=== PATIENT | female | born 1945 | race Caucasian/White ===

== ENCOUNTER 2017-09-20 11:34 | Inpatient (IN) | payer MEDICARE, OTHER ==
[2017-09-20] MEDS ORDERED: FLU Vacc TS 2017-18 (65yr UP)/PF 180 MCG/0.5 ML Syringe IM ONE (12:30)
[2017-09-20] MEDS ORDERED: Azithromycin 250 MG Tab PO STA (12:52)
[2017-09-20] MEDS ORDERED: cefTRIAXone 1 GM Vial IVPUSH STA (12:52)
[2017-09-20] MEDS ORDERED: Lactated Ringers 1,000 ML IV SCH (13:00)
--- NOTE | 2017-09-20 13:35 | PCM.HP ---
H&P History of Present Illness - General Date of Service: 09/20/17 Admit Problem/Dx: Admission Diagnosis/Problem Admission Diagnosis/Problem Pneumonia Source of Information: Patient, Family History Limitations: Reports: No Limitations - History of Present Illness Initial Comments - Free Text/Narative: Ms. Nick is a 72 yo female who presented to clinic today for evaluation of a cough for the past 12 days. Cough is productive of greenish sputum and has been consistently worsening over time. Developed some left chest pain 2 days ago that is present all the time but worse with coughing or deep breaths. Associated symptoms have included subjective fever (temps checked at home actually low in the 95 range), chills, myalgias, shortness of breath, generalized weakness, and nausea with emesis consisting mainly of mucus. She lives independently and her daughter was becoming increasingly concerned about her functioning at home. She has not been eating or drinking as well and has noticed that her urine output has slowed. She has not had any URI symptoms or sore throat. She was seen last week for similar symptoms at which time a chest x -ray was negative. Has tried OTC cough/cold medicines without much relief in symptoms. Has a history of pneumonia many years ago and states these symptoms are similar. Back Pain Score (Numeric/FACES): 3 - Related Data Allergies/Adverse Reactions: Allergies Allergy/AdvReac Type Severity Reaction Status Date / Time Sulfa (Sulfonamide Allergy Hives Verified 09/20/17 12:10 Antibiotics) tramadol Allergy Dizziness Verified 09/20/17 12:10 Home Medications: Home Meds Acetaminophen [Tylenol Arthritis] 650 mg PO QID PRN 09/20/17 [History] Aspirin 81 mg PO DAILY 09/20/17 [History] Cholecalciferol (Vitamin D3) [Vitamin D3] 2,000 unit PO DAILY 09/20/17 [History] Citalopram Hydrobromide [Celexa] 40 mg PO DAILY 09/20/17 [History] Dextromethorphan HBr/Chlor-Mal [Coricidin Hbp Cough & Cold] 1 cap PO DAILY 09/20 [History] Diltiazem [Cardizem CD] 240 mg PO BID 09/20/17 [History] Docusate Sodium [Colace] 100 mg PO BID 09/20/17 [History] Lactulose 15 ml PO BID 09/20/17 [History] Lisinopril 10 mg PO DAILY 09/20/17 [History] Multivitamin [Multivitamins] 1 tab PO DAILY 09/20/17 [History] Omeprazole 20 mg PO DAILY 09/20/17 [History] Valerian Root [Valerian] 450 mg PO DAILY 09/20/17 [History] atorvaSTATin [Lipitor] 40 mg PO DAILY 09/20/17 [History] Past Medical History HEENT History: Reports: Other (See Below) Other HEENT History: rhinitis. 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 tolerance Hematologic History: Reports: None Immunologic History: Reports: None Oncologic (Cancer) History: Reports: None Dermatologic History: Reports: None - Infectious Disease History Infectious Disease History: Reports: None - Past Surgical History GI Surgical History: Reports: Appendectomy, Cholecystectomy, Colonoscopy Female Surgical History: Reports: Hysterectomy Endocrine Surgical History: Reports: Thyroidectomy (partial) Musculoskeletal Surgical History: Reports: Hip Replacement, Knee Replacement Social & Family History - Family History Respiratory: Reports: COPD Endocrine/Metabolic: Reports: Diabetes, type II Oncologic: Reports: Breast - Tobacco Use Smoking Status *Q: Former Smoker - Caffeine Use Caffeine Use: Reports: None - Alcohol Use Alcohol Use History: No Alcohol Use in Last Twelve Months: No - Recreational Drug Use Recreational Drug Use: No - Living Situation & Occupation Living situation: Reports: Single, Alone Occupation: Retired H&P Review of Systems - Review of Systems: Review Of Systems: See Below General: Reports: Fever, Chills, Weakness HEENT: Reports: No Symptoms Pulmonary: Reports: Shortness of Breath, Pleuritic Chest Pain, Cough Cardiovascular: Reports: No Symptoms Gastrointestinal: Reports: Anorexia, Nausea, Vomiting. Denies: Abdominal Pain, Diarrhea Genitourinary: Reports: No Symptoms Musculoskeletal: Reports: No Symptoms Skin: Reports: No Symptoms Psychiatric: Reports: No Symptoms Neurological: Reports: No Symptoms Exam - Exam Exam: See Below - Vital Signs Vital Signs: Last Vital Signs Temp 38.0 C 09/20/17 13:31 Pulse 92 09/20/17 13:31 Resp 24 H 09/20/17 13:31 BP 158/78 H 09/20/17 13:31 Pulse Ox 93 L 09/20/17 13:31 Weight: 77.619 kg - Exam General: Alert, Cooperative HEENT: Conjunctiva Clear, Mucosa Moist & [place], Posterior Pharynx Clear, Pupils Equal, Pupils Reactive, TMs Clear Neck: Supple, Trachea Midline. No: Lymphadenopathy, Thyromegaly Lungs: Normal Respiratory Effort, Crackles (right mid and lower lung hyde) Cardiovascular: Regular Rate, Regular Rhythm, Normal S1, Normal S2. No: Systolic Murmur, Diastolic Murmur GI/Abdominal Exam: Normal Bowel Sounds, Soft, Non-Tender, No Organomegaly, No Distention, No Mass Extremities: Normal Inspection, Non-Tender, No Pedal Edema Peripheral Pulses: 2+: Radial (L), Radial (R) Skin: Warm, Dry, Intact Neurological: Other (diminished strength left upper and lower extremities, which is chronic; left facial droop (also chronic) but smile is symmetric; no other deficits) *Q Meaningful Use (ADM) - VTE *Q VTE Criteria *Q: - Stroke *Q Stroke Criteria *Q: - AMI *Q AMI Criteria *Q: - Problem List (1) Community acquired pneumonia SNOMED Code(s): 287979211 ICD Code: J18.9 - PNEUMONIA, UNSPECIFIED ORGANISM Status: Acute Current Visit: Yes Problem Details: - History, exam, and CXR findings are most consistent with CAP. - Clinical history and course are not really consistent with influenza nor with a post-influenza pneumonia. - Therefore, will treat with ceftriaxone and azithromycin per guidelines. - If not improving tomorrow, will reconsider testing for influenza and expanding coverage of antibiotics with addition of vancomycin. - IV fluids for 1 L, the PO's. - Oxygen PRN to keep saturations >90%. - Per CURB-65 score really could be treated outpatient but inpatient admission recommended in light of her meeting sepsis criteria. Qualifiers: Laterality: left Lung location: lower lobe of lung Qualified Code(s): J18.1 - Lobar pneumonia, unspecified organism (2) Sepsis SNOMED Code(s): 98973076 ICD Code: A41.9 - SEPSIS, UNSPECIFIED ORGANISM Status: Acute Current Visit: Yes Problem Details: - Patient meets sepsis criteria with tachycardia, leukocytosis, and fever. - Source likely CAP based on symptoms. She has no UTI, GI, or skin symptoms. - Will treat with ceftriaxone and azithromycin as above. - She did not have an initial lactate in clinic so will not repeat that now. - Blood cultures also not drawn in clinic; will obtain if patient becomes febrile again. - IV fluids today, then can do PO's. Will bolus PRN. Qualifiers: Sepsis type: sepsis due to unspecified organism Qualified Code(s): A41.9 - Sepsis, unspecified organism (3) Generalized weakness SNOMED Code(s): 24401675 ICD Code: R53.1 - WEAKNESS Status: Acute Current Visit: Yes Problem Details: - Secondary to above. - PT consult ordered to assess need for swing bed post acute stay. (4) Hypertension SNOMED Code(s): 39500791 ICD Code: I10 - ESSENTIAL (PRIMARY) HYPERTENSION Status: Chronic Current Visit: Yes Problem Details: - BP elevated on admission but patient has not been taking her medications. - Will add in lisinopril first. - If BP remains elevated, will add back in her diltiazem as well. Qualifiers: Hypertension type: essential hypertension Qualified Code(s): I10 - Essential (primary) hypertension (5) Cerebrovascular disease SNOMED Code(s): 24075370 ICD Code: I67.9 - CEREBROVASCULAR DISEASE, UNSPECIFIED Status: Chronic Current Visit: Yes Problem Details: - No symptoms of new CVA at this time. - Continue home medications. Problem List Initiated/Reviewed/Updated: Yes Orders Last 24hrs: Active Orders 24 hr Category Date Time Status Admission Status [Patient Status] [ADT] Routine ADT 09/20/17 11:35 Active Notify Provider Vital Signs [RC] 02,06,10,14,18,22 Care 09/20/17 12:50 Active Oxygen Therapy [RC] , Care 09/20/17 12:49 Active Up With Assistance [RC] , Care 09/20/17 12:49 Active VTE/DVT Education [RC] .PRN Care 09/20/17 12:49 Active Vital Signs [RC] 02,06,10,14,18,22 Care 09/20/17 12:49 Active Regular Diet [DIET] Diet 09/20/17 Dinner Active Acetaminophen [Tylenol Arthritis Pain] Med 09/20/17 13:26 Ordered 650 mg PO QID PRN Aspirin Med 09/21/17 08:00 Ordered 81 mg PO DAILY Cholecalciferol (Vitamin D3) [Vitamin D3] Med 09/21/17 08:00 Ordered 2,000 unit PO DAILY Enoxaparin [Lovenox] Med 09/21/17 08:00 Ordered 40 mg SUBCUT DAILY Lactated Ringers [Ringers, Lactated] 1,000 ml Med 09/20/17 13:00 Active IV ASDIRECTED Lisinopril [Prinivil] Med 09/20/17 13:30 Ordered 10 mg PO DAILY Omeprazole Med 09/21/17 08:00 Ordered 20 mg PO DAILY atorvaSTATin [Lipitor] Med 09/21/17 08:00 Ordered 40 mg PO DAILY Resuscitation Status Routine Resus Stat 09/20/17 12:49 Ordered Medication Orders Acetaminophen (Tylenol Arthritis Pain) 650 mg PO QID PRN PRN Reason: Pain Aspirin (Aspirin) 81 mg PO DAILY [facility] Atorvastatin Calcium (Lipitor) 40 mg PO DAILY [facility] Enoxaparin Sodium (Lovenox) 40 mg SUBCUT DAILY [facility] Lactated Ringer's (Ringers, Lactated) 1,000 mls @ 125 mls/hr IV ASDIRECTED [facility] Lisinopril (Prinivil) 10 mg PO DAILY [facility] Non-Formulary Medication (Cholecalciferol (Vitamin D3) [Vitamin D3]) 2,000 unit PO DAILY [facility] Omeprazole (Omeprazole) 20 mg PO DAILY [facility] Assessment/Plan Comment:: 72 yo female admitted with sepsis secondary to community acquired pneumonia. See details under problems above. Home medications will be continued except diltiazem which she has not been taking anyway. Ceftriaxone and azithromycin for pneumonia. IV fluids today, then PO's with bolus IV as needed. Oxygen as needed. PT consult. Lovenox for VTE prophylaxis. Patient is admitted under acute status as I anticipate she will need >48 hours of hospitalization - likely to be dismissed in the afternoon on Sunday unless swing bed is recommended. Code status is full.
[2017-09-20] MEDS: Acetaminophen 650 MG Tab.ER PO PRN ×2 (13:45→21:38)
[2017-09-20] MEDS: Lisinopril 10 MG Tab PO SCH (13:45)
[2017-09-20] MEDS ORDERED: Enoxaparin 40 MG/0.4 ML Syringe SUBCUT SCH (18:00)
[2017-09-21] MEDS: Omeprazole 20 MG Cap.CR PO SCH (06:47)
[2017-09-21] MEDS: Acetaminophen 650 MG Tab.ER PO PRN ×3 (06:48→19:37)
--- NOTE | 2017-09-21 07:16 | PCM.PN ---
- General Info Date of Service: 09/21/17 Subjective Update: Patient slept well. Has some improvement in shortness of breath and left chest pain this am. Cough is essentially stable. No fever overnight but did have some sweats. Appetite remains poor but she has had no nausea or vomiting. No diarrhea. - Review of Systems General: Reports: Weakness, Night Sweats HEENT: Reports: No Symptoms Pulmonary: Reports: Shortness of Breath, Cough Cardiovascular: Reports: No Symptoms Gastrointestinal: Reports: No Symptoms Genitourinary: Reports: No Symptoms Musculoskeletal: Reports: No Symptoms Skin: Reports: No Symptoms Neurological: Reports: Pre-Existing Deficit - Patient Data Vitals - Most Recent: Last Vital Signs Temp 36.3 C 09/21/17 05:11 Pulse 72 09/21/17 05:11 Resp 18 09/21/17 05:11 BP 157/70 H 09/21/17 05:11 Pulse Ox 95 09/21/17 05:11 Weight - Most Recent: 77.619 kg I&O - Last 24 Hours: Intake & Output 09/20/17 09/21/17 09/21/17 22:59 06:59 14:59 Intake Total 850 300 Output Total 200 800 Balance 650 -500 Lab Results Last 24 Hours: Laboratory Results - last 24 hr 09/21/17 Range/Units 00:35 Urine Color Yellow (YELLOW) Urine Appearance Clear (CLEAR) Urine pH 7.0 (5.0-8.0) Ur Specific Reserve 1.010 Urine Protein Negative (NEGATIVE) mg/dL Urine Glucose (UA) Negative (NEGATIVE) mg/dL Urine Ketones Negative (NEGATIVE) mg/dL Urine Occult Blood Trace-lysed H (NEGATIVE) Urine Nitrite Negative (NEGATIVE) Urine Bilirubin Negative (NEGATIVE) Urine Urobilinogen 0.2 (0.2) EU/dL Ur Leukocyte Esterase Small H (NEGATIVE) Urine RBC 0-5 (NOT SEEN) /HPF Urine WBC 0-5 (NOT SEEN) /HPF Ur Squamous Epith Cells Rare (NEGATIVE) /HPF Urine Bacteria Few H (NEGATIVE) /HPF Urine Mucus Not seen (NEGATIVE) /LPF Med Orders - Current: Current Medications Acetaminophen (Tylenol Arthritis Pain) 650 mg PO QID PRN PRN Reason: Pain Last Admin: 09/21/17 06:48 Dose: 650 mg Aspirin (Aspirin) 81 mg PO DAILY [facility] Atorvastatin Calcium (Lipitor) 40 mg PO DAILY [facility] Cholecalciferol (Vitamin D3) 2,000 units PO DAILY [facility] Enoxaparin Sodium (Lovenox) 40 mg SUBCUT DAILY [facility] Lisinopril (Prinivil) 10 mg PO DAILY [facility] Last Admin: 09/20/17 13:45 Dose: 10 mg Omeprazole (Omeprazole) 20 mg PO ACBREAKFAST [facility] Last Admin: 09/21/17 06:47 Dose: 20 mg Discontinued Medications Azithromycin (Zithromax) 500 mg PO ONETIME STA Stop: 09/20/17 12:53 Last Admin: 09/20/17 13:33 Dose: 500 mg Ceftriaxone Sodium (Rocephin) 1 gm IVPUSH ONETIME STA Stop: 09/20/17 12:53 Last Admin: 09/20/17 13:33 Dose: 1 gm Lactated Ringer's (Ringers, Lactated) 1,000 mls @ 125 mls/hr IV ASDIRECTED [facility] Stop: 09/20/17 21:01 Last Admin: 09/20/17 13:45 Dose: 125 mls/hr Influenza Virus Vaccine (Pharmacy To Dose - Influenza Vaccine) 1 each IM ONETIME ONE Stop: 09/20/17 12:03 Influenza Virus Vaccine (Fluzone High-Dose 2016-) 180 mcg IM .ONCE ONE Stop: 09/20/17 12:31 - Exam General: Alert, Oriented, Cooperative, No Acute Distress HEENT: Mucous Membr. Moist/[place] Neck: Supple, Trachea Midline, No Thyromegaly. No: Lymphadenopathy Lungs: Normal Respiratory Effort, Crackles (LLL), Wheezing (throughout) Cardiovascular: Regular Rate, Regular Rhythm, No Murmurs GI/Abdominal Exam: Normal Bowel Sounds, Soft, Non-Tender, No Organomegaly, No Distention, No Mass Extremities: Non-Tender, No Pedal Edema, Normal Capillary Refill Peripheral Pulses: 2+: Radial (L), Radial (R), Dorsalis Pedis (L), Dorsalis Pedis (R) Skin: Warm, Dry, Intact - Problem List & Annotations (1) Community acquired pneumonia SNOMED Code(s): 551126579 Code(s): J18.9 - PNEUMONIA, UNSPECIFIED ORGANISM Status: Acute Current Visit: Yes Qualifiers: Laterality: left Lung location: lower lobe of lung Qualified Code(s): J18.1 - Lobar pneumonia, unspecified organism Annotation/Comment:: - History, exam, and CXR findings are most consistent with CAP. - Clinical history and course are not really consistent with influenza nor with a post-influenza pneumonia. - Continue ceftriaxone and azithromycin. - Oxygen PRN to keep saturations >90%. Will work on weaning this today. - Per CURB-65 score really could be treated outpatient but inpatient admission recommended in light of her meeting sepsis criteria. (2) Sepsis SNOMED Code(s): 85203053 Code(s): A41.9 - SEPSIS, UNSPECIFIED ORGANISM Status: Resolved Current Visit: Yes Qualifiers: Sepsis type: sepsis due to unspecified organism Qualified Code(s): A41.9 - Sepsis, unspecified organism Annotation/Comment:: - Patient met sepsis criteria on admission with tachycardia, leukocytosis, and fever. - She is no longer meeting sepsis criteria at this time. - Source likely CAP based on symptoms. She has no UTI, GI, or skin symptoms. - Will treat with ceftriaxone and azithromycin as above. - Unfortunately, lactate and blood cultures not done with admission from clinic. Blood cultures will be obtained if patient becomes febrile again. No indication to obtain lactate at this point. (3) Generalized weakness SNOMED Code(s): 68908246 Code(s): R53.1 - WEAKNESS Status: Acute Current Visit: Yes Annotation/ Comment:: - Secondary to above. - PT consult ordered to assess need for swing bed post acute stay. (4) Hypertension SNOMED Code(s): 81067011 Code(s): I10 - ESSENTIAL (PRIMARY) HYPERTENSION Status: Chronic Current Visit: Yes Qualifiers: Hypertension type: essential hypertension Qualified Code(s): I10 - Essential (primary) hypertension Annotation/Comment:: - BP elevated on admission but patient has not been taking her medications. Much better today after lisinopril resumed. - Will continue lisinopril only for now and consider adding the diltiazem back in if BP's increase. (5) Cerebrovascular disease SNOMED Code(s): 11067430 Code(s): I67.9 - CEREBROVASCULAR DISEASE, UNSPECIFIED Status: Chronic Current Visit: Yes Annotation/Comment:: - No symptoms of new CVA at this time. - Continue home medications. - Problem List Review Problem List Initiated/Reviewed/Updated: Yes - My Orders Last 24 Hours: My Active Orders 09/20/17 11:35 Admission Status [Patient Status] [ADT] Routine 09/20/17 12:49 Oxygen Therapy [RC] 08,20 Up With Assistance [RC] 08,20 VTE/DVT Education [RC] .PRN Vital Signs [RC] 02,06,10,14,18,22 Resuscitation Status Routine 09/20/17 12:50 Notify Provider Vital Signs [RC] 02,06,10,14,18,22 09/20/17 13:26 Acetaminophen [Tylenol Arthritis Pain] 650 mg PO QID PRN 09/20/17 13:30 Lisinopril [Prinivil] 10 mg PO DAILY 09/20/17 16:13 Consult to Physical Therapy [PT Evaluation and Treatment] [CONS] Routine 09/20/17 Dinner Regular Diet [DIET] 09/21/17 05:11 BASIC METABOLIC PANEL,BMP [CHEM] Routine CBC WITH AUTO DIFF [HEME] Routine 09/21/17 07:00 Omeprazole 20 mg PO ACBREAKFAST 09/21/17 08:00 Aspirin 81 mg PO DAILY Cholecalciferol (Vitamin D3) [Vitamin D3] 2,000 units PO DAILY Enoxaparin [Lovenox] 40 mg SUBCUT DAILY atorvaSTATin [Lipitor] 40 mg PO DAILY - Assessment Assessment:: 72 yo on hospital day #2 with sepsis secondary to community acquired pneumonia. Some improved this morning but still quite weak. Sepsis resolved. - Plan Plan:: See details under problems above. Home medications will be continued except diltiazem which she has not been taking anyway. Ceftriaxone and azithromycin for pneumonia. Oxygen will be weaned as able. PT consult. Lovenox for VTE prophylaxis. Patient will remain under acute status at this time - anticipate dismissal in the next 24-48 hours unless swing bed is recommended. Code status is full.
[2017-09-21 07:41] LABS: CHLORIDE,CL 97 mmol/L (98-107); SODIUM,NA 137 mmol/L (136-145)
[2017-09-21] MEDS: Enoxaparin 40 MG/0.4 ML Syringe SUBCUT SCH (09:11)
[2017-09-21] MEDS: atorvaSTATin 40 MG Tab PO SCH (09:11)
[2017-09-21] MEDS: Lisinopril 10 MG Tab PO SCH (09:11)
[2017-09-21] MEDS: Cholecalciferol (Vitamin D3) 1,000 Unit Tab PO SCH (09:11)
[2017-09-21] MEDS: Aspirin 81 MG Tab.Chew PO SCH (09:11)
[2017-09-21] MEDS ORDERED: Sodium Chloride 0.9% 10 ML Syringe FLUSH PRN (09:17)
[2017-09-21] MEDS: cefTRIAXone 1 GM Vial IVPUSH SCH (12:03)
[2017-09-21] MEDS: Azithromycin 250 MG Tab PO SCH (12:03)
[2017-09-21] MEDS ORDERED: Albuterol 0.083% 2.5 MG/3 ML Neb Soln NEB PRN (12:10)
[2017-09-22] MEDS: Acetaminophen 650 MG Tab.ER PO PRN ×3 (00:24→20:35)
[2017-09-22] MEDS: Omeprazole 20 MG Cap.CR PO SCH ×2 (04:32→06:01)
[2017-09-22] MEDS: Cholecalciferol (Vitamin D3) 1,000 Unit Tab PO SCH (08:01)
[2017-09-22] MEDS: Enoxaparin 40 MG/0.4 ML Syringe SUBCUT SCH (08:01)
[2017-09-22] MEDS: Aspirin 81 MG Tab.Chew PO SCH (08:01)
[2017-09-22] MEDS: atorvaSTATin 40 MG Tab PO SCH (08:01)
[2017-09-22] MEDS: Lisinopril 10 MG Tab PO SCH (08:01)
[2017-09-22 09:30] LABS: CHLORIDE,CL 94 mmol/L (98-107); SODIUM,NA 133 mmol/L (136-145)
[2017-09-22] MEDS: Diltiazem 120 MG Cap.CD PO SCH (11:17)
[2017-09-22] MEDS: cefTRIAXone 1 GM Vial IVPUSH SCH (11:18)
[2017-09-22] MEDS: Potassium Chloride 10 MEQ Tab.ER PO SCH ×2 (11:18→20:35)
[2017-09-22] MEDS: Azithromycin 250 MG Tab PO SCH (11:18)
[2017-09-22] MEDS: predniSONE 20 MG Tab PO SCH (11:25)
[2017-09-22] MEDS: HYDROmorphone 2 MG Tab PO PRN ×2 (11:52→20:36)
--- NOTE | 2017-09-22 11:54 | PN ---
Progress Note for ANA RIVAS Date: 09/22/2017 Room #: VM.211 SUBJECTIVE: A 72-year-old hospital day #3 with community-acquired pneumonia. She has been sick with a cough for about 2 weeks. Her initial chest x-rays were negative, but she returned to the clinic and was having more left-sided chest pain. This continues, it comes and goes, not necessarily worse with coughing or breathing. She did cough up some sputum this morning with a tinge of blood in it. Otherwise, she continues to cough. She is requiring oxygen. She is not normally on oxygen at home, but her saturations have remained above 90%. She denies that she is short of breath, but does feel weak. She has had a previous stroke, but does live independently. She has had previous history of smoking and tells me she has had a little asthma. She got a nebulizer and it seemed to help. She has been wheezing. OBJECTIVE: Vital Signs: She has been afebrile now since admission when temperature was 100.4. Her temperature currently is 99.1, pulse is 90, blood pressure 162/89, respiratory rate is 20, and O2 of 93% on 3 L. General: She is in no acute distress. Heart: Regular rate and rhythm. Lungs: Sounds are clear with no crackles appreciated, but she has both inspiratory and expiratory wheezing throughout. Abdomen: Positive bowel sounds. Soft and nontender. Extremities: Warm and dry. No edema. Her left arm has some hemiplegia from previous stroke. LABORATORY DATA: Lab work reviewed. It did show white count up to 10.7, hemoglobin 11.5, and platelets 337. Sodium 133, potassium 3.4, chloride 94, bicarbonate 30, BUN 9, creatinine 0.8, glucose 174. ASSESSMENT AND PLAN: 1. Community-acquired pneumonia, left lower lobe, on IV Rocephin and Zithromax, day #3, afebrile. White count did go up slightly, however, clinically she does seem to be improving. 2. Sepsis secondary to community-acquired pneumonia. 3. Generalized weakness due to pneumonia. 4. Essential hypertension, under poor control. She does tell me she was taking the diltiazem at home. I am going to start it at 120 mg dose and monitor. She is also on lisinopril. 5. History of stroke, due to recent illness she has had some worsening of her left-sided weakness and PT did recommended swing bed. She is agreeable. 6. Possible reactive airway disease. Given her wheezing today, I am going to order some oral prednisone. This will likely make the white count go up, so we will skip labs tomorrow, especially since she was a hard draw. 7. Hypokalemia. We will replace orally. We will encourage p.o. intake. She has been eating only about 50% of her meals. PLAN: The patient will continue acute cares. We will continue IV Rocephin and oral Zithromax. No sputum culture results are available. No blood culture was done through the clinic. We will continue to wean oxygen, get her up into the chair, get her on some incentive spirometry, scheduled nebulizers, and some prednisone. Re-evaluate tomorrow for possible transition over to swing bed. We will probably repeat lab work again in 2 to 3 days for the potassium and blood counts. Otherwise, she is on Lovenox for DVT prophylaxis. FLACA: 09/22/2017 11:13:02 MODL: 09/22/2017 11:48:10 /[id number]
[2017-09-22] MEDS: Albuterol 0.083% 2.5 MG/3 ML Neb Soln NEB SCH ×2 (13:07→20:35)
[2017-09-23] MEDS: Omeprazole 20 MG Cap.CR PO SCH ×2 (05:32→06:04)
[2017-09-23] MEDS: Albuterol 0.083% 2.5 MG/3 ML Neb Soln NEB SCH ×4 (06:06→19:40)
[2017-09-23] MEDS: HYDROmorphone 2 MG Tab PO PRN ×2 (08:00→21:31)
[2017-09-23] MEDS: Enoxaparin 40 MG/0.4 ML Syringe SUBCUT SCH (08:00)
[2017-09-23] MEDS: Aspirin 81 MG Tab.Chew PO SCH (08:01)
[2017-09-23] MEDS: atorvaSTATin 40 MG Tab PO SCH (08:01)
[2017-09-23] MEDS: Lisinopril 10 MG Tab PO SCH (08:01)
[2017-09-23] MEDS: Diltiazem 120 MG Cap.CD PO SCH (08:01)
[2017-09-23] MEDS: predniSONE 20 MG Tab PO SCH (08:01)
[2017-09-23] MEDS: Potassium Chloride 10 MEQ Tab.ER PO SCH ×2 (08:01→19:40)
[2017-09-23] MEDS: Cholecalciferol (Vitamin D3) 1,000 Unit Tab PO SCH (08:01)
[2017-09-23] MEDS ORDERED: methylPREDNISolone Sodium Succinate 40 MG/1 ML SDV IVPUSH ONE (09:33)
[2017-09-23] MEDS: cefTRIAXone 1 GM Vial IVPUSH SCH (11:28)
[2017-09-23] MEDS: Azithromycin 250 MG Tab PO SCH (11:28)
--- NOTE | 2017-09-23 11:57 | PN ---
Progress Note for ANA RIVAS Date: 09/23/2017 Room #: VM.211 SUBJECTIVE: This is hospital day #4 for a 72-year-old admitted with a left lower lobe pneumonia from the clinic. She continues to have pleuritic left chest wall pain and even required some doses of oral Dilaudid including one this morning. She is still coughing, but has not coughed up blood since yesterday. She denies that she is feeling short of breath and has been weaned down to 2 L of oxygen. She otherwise did spike 100.7 temp at 10 p.m. last night. She is still wheezing. She feels the nebulizer has helped. She was given some oral prednisone yesterday. OBJECTIVE: Vital Signs: Her temperature is 97.3, pulse 65, blood pressure 138/68, respiratory rate 18, and O2 94% on 2 L. General: She is in no acute distress. Heart: Regular rate and rhythm. Lungs: Sounds are decreased over the left base with crackles. She has inspiratory and expiratory wheezing throughout. Abdomen: Nondistended, nontender. Positive bowel sounds. Extremities: Warm and dry. No edema. Mental status: She is alert and orientated x3. LAB WORK: Showed blood sugar did go up to 193 yesterday afternoon, was 119 this morning. ASSESSMENT AND PLAN: 1. Sepsis secondary to a left lower lobe pneumonia. She still had a low-grade temp last evening. We will go ahead and repeat a chest x-ray today. 2. Left lower lobe pneumonia. She did have some gram-positive cocci on Gram stain. Culture pending although, she has been on antibiotics. 3. Left lower lobe pneumonia, community acquired. We will repeat her x-ray today. 4. Reactive airway disease, possibly underlying chronic obstructive pulmonary disease or asthma. We will place her on IV Solu-Medrol instead of oral prednisone. We will increase her nebs to q.i.d. and also have p.r.n.. 5. History of stroke. She has been working with PT prior to the weekend and she will likely transfer over to swing bed for further cares due to deconditioning from her current illness. 6. Essential hypertension, under better control after restarting diltiazem. 7. Hyperglycemia with prediabetes, likely from steroids. We will continue to monitor Accu-Chek's. 8. Hypokalemia. We will repeat lab work tomorrow. PLAN: At this point, the patient will continue acute cares. We will continue IV Rocephin and oral Zithromax due to spiking fever last night. I will repeat her x-ray and adjust antibiotics as needed and otherwise we will continue to wean her oxygen. We will give her some IV Solu-Medrol and continue nebulizers. We will revaluate tomorrow for possible discharge over to swing bed. For DVT prophylaxis, she is on Lovenox. MKA: 09/23/2017 09:37:44 MODL: 09/23/2017 11:48:56 /[id number]
[2017-09-23] MEDS: Acetaminophen 650 MG Tab.ER PO PRN (13:24)
[2017-09-24] MEDS: Omeprazole 20 MG Cap.CR PO SCH (06:12)
[2017-09-24] MEDS: Albuterol 0.083% 2.5 MG/3 ML Neb Soln NEB SCH (07:17)
[2017-09-24] MEDS: Aspirin 81 MG Tab.Chew PO SCH (07:41)
[2017-09-24] MEDS: Enoxaparin 40 MG/0.4 ML Syringe SUBCUT SCH (07:42)
[2017-09-24] MEDS: Diltiazem 120 MG Cap.CD PO SCH (07:42)
[2017-09-24] MEDS: Cholecalciferol (Vitamin D3) 1,000 Unit Tab PO SCH (07:42)
[2017-09-24] MEDS: Lisinopril 10 MG Tab PO SCH (07:42)
[2017-09-24] MEDS: atorvaSTATin 40 MG Tab PO SCH (07:42)
[2017-09-24] MEDS: Potassium Chloride 10 MEQ Tab.ER PO SCH (07:42)
[2017-09-24] MEDS: HYDROmorphone 2 MG Tab PO PRN (07:46)
[2017-09-24 08:50] LABS: CHLORIDE,CL 95 mmol/L (98-107); SODIUM,NA 134 mmol/L (136-145)
[2017-09-24] MEDS ORDERED: Magnesium Oxide 400 MG Tab PO SCH (09:30)
[2017-09-24] MEDS ORDERED: predniSONE 20 MG Tab PO SCH (09:45)
[2017-09-24] MEDS ORDERED: Cefuroxime 250 MG Tab PO SCH (09:45)
--- NOTE | 2017-09-25 03:54 | DISCH ---
PRIMARY DISCHARGE DIAGNOSES: 1. Sepsis, secondary to left lower lobe pneumonia. 2. Community-acquired pneumonia, left lower lobe. Sputum cultures grew normal respiratory [place]. 3. Generalized weakness with history of stroke and left-sided weakness due to underlying pneumonia, requiring physical therapy prior to returning home independently. 4. Essential hypertension with elevated blood pressures, improved with restarting diltiazem. 5. Hyperglycemia and prediabetes, worsened by steroids up to 220, but no insulin required. 6. Wheezing with likely reactive airway disease, possibly asthma versus COPD with remote history of smoking. 7. Mood disorder, on citalopram, unclear if the patient was taking at home. REASON FOR ADMISSION: This is a 72-year-old female who had a cough for 12 days and made a return trip to the clinic. X-ray was done which was consistent with a left lower lobe pneumonia. O2 saturations were below 90% on room air; so, she was admitted to the hospital. She was initiated on oxygen. She was started on IV Rocephin and oral Zithromax. She became afebrile, but did spike a slight low- grade fever to 100.7 on 09/22/2017 at 10 p.m.; therefore, was continued on IV antibiotics. She was also increasingly wheezy so was given a dose of oral prednisone then upgraded to Solu-Medrol 40 mg. Therefore, blood sugars went up, but her wheezing improved. She was initiated on scheduled nebulizers as the p.r.n. nebulizers did help her and overall she was improving and oxygen was being weaned down from 3 L to 2 L and she was saturating 95% on 2 L on discharge. She continued to have significant pain over the left chest wall; therefore, Tylenol was not enough, she was started on Dilaudid. She took a dose twice daily and it helped her pain considerably. X-ray was repeated because of this pain and showed no significant effusion and no worsening of the pneumonia. By the time of discharge, the pain was slightly across to the right-side of the chest, but otherwise she was breathing much better, feeling better, and felt to be stable for discharge over to swing bed. PHYSICAL EXAMINATION: Vital Signs: Discharge vitals included temperature 97.6, pulse 79, blood pressure 153/88, respiratory rate 18, and O2 95% on 2 L. General: She is in no acute distress. Heart: Regular rate and rhythm. Lungs: Sounds are clear to auscultation bilaterally with rare expiratory wheezing. No crackles appreciated over the left base this morning. Abdomen: Positive bowel sounds. Soft and nontender. Extremities: Warm and dry. No edema. Mental Status: Alert and orientated x3. Genitourinary: There was some mention by the nursing that she had some vaginal itching, however, she did not mention this and I had not examined the area prior to completing rounds. DISCHARGE PLANS AND INSTRUCTIONS: She is transitioned over to swing bed. She will be on oral prednisone 20 mg daily until Sunday. She will complete 1 week of Ceftin on , I am electing for 1 week because of her fever and continued hypoxia. She will complete her azithromycin today. We will wean her down off the Dilaudid and hopefully back to Tylenol over the next couple of days. We will also have her on Lovenox for DVT prophylaxis. We will continue her on scheduled nebs and incentive spirometry. She will be working with therapies prior to returning home. We will consider increasing the diltiazem if blood pressure remains high; otherwise, we can repeat lab work in a couple of days. Her potassium has improved; so, supplements were stopped. White count did go up to 15.7, but this is not unexpected due to getting IV steroids, hemoglobin 12, platelets were 344. Sodium 134, potassium 4.7, chloride 95, bicarb 29, BUN 19, glucose 176, and mag 1.7, on discharge, magnesium supplements were also started. Greater than 30 minutes spent on the discharge process on Dinah Nick going to swing bed code level 1. MKA: 09/24/2017 10:30:28 MODL: 09/25/2017 03:47:44 /[id number]
== END 2017-09-24 09:57 | disposition swing bed (61) | DRG 871 ==
LOC: VM.MS 11:35
PROVIDERS: ADMIT Family Medicine; ATTEND Family Medicine
DX: A41.9 Sepsis, unspecified organism (principal); J18.9 Pneumonia, unspecified organism; I69.354 Hemiplegia and hemiparesis following cerebral infarction affecting left non-dominant side; R53.1 Weakness; E87.6 Hypokalemia; I10 Essential (primary) hypertension; E78.00 Pure hypercholesterolemia, unspecified; K21.9 Gastro-esophageal reflux disease without esophagitis; M19.90 Unspecified osteoarthritis, unspecified site; F32.9 Major depressive disorder, single episode, unspecified; R73.9 Hyperglycemia, unspecified; I67.9 Cerebrovascular disease, unspecified; Z87.891 Personal history of nicotine dependence; Z88.8 Allergy status to other drugs, medicaments and biological substances; Z79.82 Long term (current) use of aspirin; Z79.899 Other long term (current) drug therapy; R06.2 Wheezing; F39 Unspecified mood [affective] disorder
CPT/HCPCS: 36415; 71010; 80048; 81001; 82962; 83735; 85025; 87070; 87205; 94640; 94760; 97161-GP; A9270-GY; J0696; J1650; J2920; J7050; J7120; J7620-GY

== ENCOUNTER 2017-09-24 09:37 | Inpatient (IN) | payer MEDICARE, OTHER ==
[2017-09-24] MEDS ORDERED: Albuterol 0.083% 2.5 MG/3 ML Neb Soln NEB PRN (10:15)
[2017-09-24] MEDS ORDERED: Sodium Chloride 0.9% 10 ML Syringe FLUSH PRN (10:15)
[2017-09-24] MEDS: Miconazole 2% Vaginal Crm 45 GM Tube TOP SCH ×3 (11:01→19:05)
[2017-09-24] MEDS: Albuterol 0.083% 2.5 MG/3 ML Neb Soln NEB SCH ×4 (11:01→19:06)
[2017-09-24] MEDS: Cefuroxime 250 MG Tab PO SCH ×3 (11:11→19:05)
[2017-09-24] MEDS ORDERED: Azithromycin 250 MG Tab PO SCH (12:00)
[2017-09-24] MEDS: HYDROmorphone 2 MG Tab PO PRN (15:20)
[2017-09-24] MEDS: Acetaminophen 650 MG Tab.ER PO PRN (18:49)
[2017-09-24] MEDS ORDERED: Cefuroxime 250 MG Tab PO SCH (20:00)
[2017-09-25] MEDS: Omeprazole 20 MG Cap.CR PO SCH ×2 (05:48→06:25)
[2017-09-25] MEDS: Enoxaparin 40 MG/0.4 ML Syringe SUBCUT SCH ×2 (06:21→07:01)
[2017-09-25] MEDS: Aspirin 81 MG Tab.Chew PO SCH ×2 (06:22→07:00)
[2017-09-25] MEDS: Lisinopril 10 MG Tab PO SCH ×2 (06:22→07:01)
[2017-09-25] MEDS: Cefuroxime 250 MG Tab PO SCH ×3 (06:22→20:45)
[2017-09-25] MEDS: predniSONE 20 MG Tab PO SCH ×2 (06:23→07:01)
[2017-09-25] MEDS: atorvaSTATin 40 MG Tab PO SCH ×2 (06:23→07:01)
[2017-09-25] MEDS: Magnesium Oxide 400 MG Tab PO SCH ×2 (06:23→07:01)
[2017-09-25] MEDS: Diltiazem 120 MG Cap.CD PO SCH ×2 (06:24→07:00)
[2017-09-25] MEDS: Cholecalciferol (Vitamin D3) 1,000 Unit Tab PO SCH ×2 (06:24→07:02)
[2017-09-25] MEDS: Albuterol 0.083% 2.5 MG/3 ML Neb Soln NEB SCH ×4 (07:11→20:44)
[2017-09-25] MEDS: Miconazole 2% Vaginal Crm 45 GM Tube TOP SCH ×2 (08:51→20:48)
--- NOTE | 2017-09-25 12:46 | PCM.PN ---
- General Info Date of Service: 09/25/17 - Patient Data Vitals - Most Recent: Last Vital Signs Temp 36.4 C 09/25/17 04:55 Pulse 63 09/25/17 06:24 Resp 16 09/25/17 04:55 BP 157/67 H 09/25/17 06:24 Pulse Ox 93 L 09/25/17 07:12 I&O - Last 24 Hours: Intake & Output 09/24/17 09/25/17 09/25/17 22:59 06:59 14:59 Intake Total 240 240 Output Total 150 375 600 Balance 90 -375 -360 Lab Results Last 24 Hours: Laboratory Results - last 24 hr 09/24/17 09/25/17 09/25/17 Range/Units 17:02 05:43 10:49 POC Glucose 174 H 114 H 169 H (74-106) mg/dL Med Orders - Current: Current Medications Acetaminophen (Tylenol Arthritis Pain) 650 mg PO QID PRN PRN Reason: Pain Last Admin: 09/24/17 18:49 Dose: 650 mg Albuterol (Proventil Neb Soln) 2.5 mg NEB Q6H PRN PRN Reason: wheezing, shortness of breath Albuterol (Proventil Neb Soln) 2.5 mg NEB QIDRT [facility] Last Admin: 09/25/17 10:49 Dose: 2.5 mg Aspirin (Halfprin) 81 mg PO DAILY [facility] Atorvastatin Calcium (Lipitor) 40 mg PO DAILY [facility] Last Admin: 09/25/17 07:01 Dose: Not Given Cefuroxime Axetil (Ceftin) 250 mg PO BID [facility] Stop: 09/27/17 20:01 Last Admin: 09/25/17 07:00 Dose: Not Given Cholecalciferol (Vitamin D3) 2,000 units PO DAILY [facility] Last Admin: 09/25/17 07:02 Dose: Not Given Diltiazem HCl (Cardizem Cd) 120 mg PO DAILY [facility] Last Admin: 09/25/17 07:00 Dose: Not Given Enoxaparin Sodium (Lovenox) 40 mg SUBCUT DAILY [facility] Last Admin: 09/25/17 07:01 Dose: Not Given Hydromorphone HCl (Dilaudid) 2 mg PO Q8H PRN PRN Reason: Pain Last Admin: 09/24/17 15:20 Dose: 2 mg Lisinopril (Prinivil) 10 mg PO DAILY [facility] Last Admin: 09/25/17 07:01 Dose: Not Given Magnesium Oxide (Magnesium Oxide) 400 mg PO DAILY [facility] Last Admin: 09/25/17 07:01 Dose: Not Given Miconazole (Miconazole 2% Vaginal) 0 gm TOP BID [facility] Last Admin: 09/25/17 08:51 Dose: 1 applic Omeprazole (Omeprazole) 20 mg PO ACBREAKFAST [facility] Last Admin: 09/25/17 06:25 Dose: Not Given Prednisone (Prednisone) 20 mg PO DAILY [facility] Stop: 09/28/17 23:00 Last Admin: 09/25/17 07:01 Dose: Not Given Sodium Chloride (Saline Flush) 10 ml FLUSH ASDIRECTED PRN PRN Reason: Other Discontinued Medications Aspirin (Aspirin) 81 mg PO DAILY [facility] Last Admin: 09/25/17 07:00 Dose: Not Given Azithromycin (Zithromax) 500 mg PO Q24H [facility] Stop: 09/24/17 12:01 Last Admin: 09/24/17 11:01 Dose: 500 mg Cefuroxime Axetil (Ceftin) 250 mg PO BID [facility]
--- NOTE | 2017-09-25 12:47 | PCM.SN ---
- Free Text/Narrative Note: Checked on patient this morning. She is doing much better. Breathing and cough have improved; left chest wall pain is well controlled. Her main question is how long she will have to stay here on swing bed. Discussed duration of swing bed is up to therapy really. She will complete her courses of prednisone and antibiotics this week. Wean oxygen and hydromorphone as able. No changes to the plan of care. All questions answered.
[2017-09-25] MEDS: HYDROmorphone 2 MG Tab PO PRN ×2 (12:57→20:44)
[2017-09-26] MEDS: Omeprazole 20 MG Cap.CR PO SCH (06:40)
[2017-09-26] MEDS: Albuterol 0.083% 2.5 MG/3 ML Neb Soln NEB SCH ×4 (07:05→20:30)
[2017-09-26] MEDS: Enoxaparin 40 MG/0.4 ML Syringe SUBCUT SCH (08:00)
[2017-09-26] MEDS: Lisinopril 10 MG Tab PO SCH (08:02)
[2017-09-26] MEDS: Cefuroxime 250 MG Tab PO SCH ×2 (08:02→20:30)
[2017-09-26] MEDS: Aspirin 81 MG Tab.EC PO SCH (08:02)
[2017-09-26] MEDS: predniSONE 20 MG Tab PO SCH (08:02)
[2017-09-26] MEDS: Cholecalciferol (Vitamin D3) 1,000 Unit Tab PO SCH (08:02)
[2017-09-26] MEDS: Magnesium Oxide 400 MG Tab PO SCH (08:02)
[2017-09-26] MEDS: Diltiazem 120 MG Cap.CD PO SCH (08:02)
[2017-09-26] MEDS: Acetaminophen 650 MG Tab.ER PO PRN ×2 (08:07→16:31)
[2017-09-26] MEDS: Miconazole 2% Vaginal Crm 45 GM Tube TOP SCH ×2 (08:23→20:31)
--- NOTE | 2017-09-26 09:58 | PCM.SN ---
- Free Text/Narrative Note: Patient not seen today. BP still elevated. Will increase diltiazem to previous home dose of 240 mg starting tomorrow.
[2017-09-26] MEDS ORDERED: Diltiazem 120 MG Cap.CD PO ONE (10:15)
[2017-09-26] MEDS: atorvaSTATin 40 MG Tab PO SCH (10:57)
[2017-09-27] MEDS: Albuterol 0.083% 2.5 MG/3 ML Neb Soln NEB SCH ×4 (06:53→21:51)
[2017-09-27] MEDS: Omeprazole 20 MG Cap.CR PO SCH (07:21)
[2017-09-27] MEDS: Cholecalciferol (Vitamin D3) 1,000 Unit Tab PO SCH (07:35)
[2017-09-27] MEDS: Cefuroxime 250 MG Tab PO SCH ×2 (07:35→21:51)
[2017-09-27] MEDS: predniSONE 20 MG Tab PO SCH (07:36)
[2017-09-27] MEDS: Enoxaparin 40 MG/0.4 ML Syringe SUBCUT SCH (07:36)
[2017-09-27] MEDS: atorvaSTATin 40 MG Tab PO SCH (07:36)
[2017-09-27] MEDS: Aspirin 81 MG Tab.EC PO SCH (07:36)
[2017-09-27] MEDS: Lisinopril 10 MG Tab PO SCH (07:36)
[2017-09-27] MEDS: Diltiazem 240 MG Cap.CD PO SCH (07:36)
[2017-09-27] MEDS: Magnesium Oxide 400 MG Tab PO SCH (07:36)
[2017-09-27] MEDS: Miconazole 2% Vaginal Crm 45 GM Tube TOP SCH ×2 (07:39→21:51)
[2017-09-27] MEDS: Acetaminophen 650 MG Tab.ER PO PRN ×2 (09:39→21:50)
[2017-09-28] MEDS: Omeprazole 20 MG Cap.CR PO SCH (06:46)
[2017-09-28] MEDS: Albuterol 0.083% 2.5 MG/3 ML Neb Soln NEB SCH ×4 (07:14→20:29)
[2017-09-28] MEDS: Lisinopril 10 MG Tab PO SCH (07:45)
[2017-09-28] MEDS: Acetaminophen 650 MG Tab.ER PO PRN ×2 (07:46→18:37)
[2017-09-28] MEDS: Cholecalciferol (Vitamin D3) 1,000 Unit Tab PO SCH (07:46)
[2017-09-28] MEDS: predniSONE 20 MG Tab PO SCH (07:46)
[2017-09-28] MEDS: Diltiazem 240 MG Cap.CD PO SCH (07:46)
[2017-09-28] MEDS: atorvaSTATin 40 MG Tab PO SCH (07:46)
[2017-09-28] MEDS: Miconazole 2% Vaginal Crm 45 GM Tube TOP SCH ×2 (07:47→20:46)
[2017-09-28] MEDS: Magnesium Oxide 400 MG Tab PO SCH (07:47)
[2017-09-28] MEDS: Enoxaparin 40 MG/0.4 ML Syringe SUBCUT SCH (07:47)
[2017-09-28] MEDS: Aspirin 81 MG Tab.EC PO SCH (07:47)
[2017-09-29] MEDS: Acetaminophen 650 MG Tab.ER PO PRN (05:51)
[2017-09-29] MEDS: Omeprazole 20 MG Cap.CR PO SCH (06:00)
[2017-09-29] MEDS: Albuterol 0.083% 2.5 MG/3 ML Neb Soln NEB SCH ×2 (07:04→10:28)
[2017-09-29] MEDS: Aspirin 81 MG Tab.EC PO SCH (08:12)
[2017-09-29] MEDS: Magnesium Oxide 400 MG Tab PO SCH (08:12)
[2017-09-29] MEDS: Diltiazem 240 MG Cap.CD PO SCH (08:12)
[2017-09-29] MEDS: Lisinopril 10 MG Tab PO SCH (08:13)
[2017-09-29] MEDS: Cholecalciferol (Vitamin D3) 1,000 Unit Tab PO SCH (08:13)
[2017-09-29] MEDS: atorvaSTATin 40 MG Tab PO SCH (08:14)
[2017-09-29] MEDS: Enoxaparin 40 MG/0.4 ML Syringe SUBCUT SCH (08:14)
[2017-09-29] MEDS: Miconazole 2% Vaginal Crm 45 GM Tube TOP SCH (08:14)
--- NOTE | 2017-09-29 10:55 | PCM.DCSUM1 ---
Discharge Summary - Hospital Course Brief History: Ms. Nick is a 72 yo female who was admitted to swing bed for strengthening following an acute hospitalization for pneumonia and asthma exacerbation. - Discharge Data Discharge Date: 09/29/17 Discharge Disposition: Home, W Home Health Agency Condition: Good - Discharge Diagnosis/Problem(s) (1) Generalized weakness SNOMED Code(s): 14027505 ICD Code: R53.1 - WEAKNESS Status: Acute Current Visit: No Problem Details: This is secondary to pneumonia and asthma exacerbation. Physical and occupational therapy have worked with her and her strength has significantly improved. She will be discharged home and will continue therapies with home health. (2) Asthma exacerbation SNOMED Code(s): 051942956 ICD Code: J45.901 - UNSPECIFIED ASTHMA WITH (ACUTE) EXACERBATION Status: Acute Current Visit: Yes Problem Details: Patient had significant wheezing during her acute hospital stay and was treated with prednisone and nebulizer treatments. This improved significantly and her wheezing was resolved at the time of discharge. Qualifiers: Asthma severity: unspecified severity Asthma persistence: unspecified Qualified Code(s): J45.901 - Unspecified asthma with (acute) exacerbation (3) Community acquired pneumonia SNOMED Code(s): 010332132 ICD Code: J18.9 - PNEUMONIA, UNSPECIFIED ORGANISM Status: Acute Current Visit: No Problem Details: During her acute admission, she was also diagnosed and treated for pneumonia. Her antibiotic course was completed during her swing bed stay and she has subsequently done well. She was also able to be weaned off the oxygen during her swing bed stay as well. She did have significant left chest pain associated with the pneumonia that initially required dilaudid but she has been taken off of that and her pain has continued to improve. It is well controlled on her current medications. Qualifiers: Laterality: left Lung location: lower lobe of lung Qualified Code(s): J18.1 - Lobar pneumonia, unspecified organism (4) Cerebrovascular disease SNOMED Code(s): 08035908 ICD Code: I67.9 - CEREBROVASCULAR DISEASE, UNSPECIFIED Status: Chronic Current Visit: No Problem Details: No symptoms of new CVA. Home medications continued. (5) Hypertension SNOMED Code(s): 13428017 ICD Code: I10 - ESSENTIAL (PRIMARY) HYPERTENSION Status: Chronic Current Visit: No Problem Details: Blood pressure has been elevated at times. Her home medications were added back in at their previous doses with improvements. Will continue to monitor and adjust as needed as an outpatient. Qualifiers: Hypertension type: essential hypertension Qualified Code(s): I10 - Essential (primary) hypertension - Patient Summary/Data Operative Procedure(s) Performed: none Complications: none Consults: Consultations 09/24/17 10:15 Consult to Physical Therapy [PT Evaluation and Treatment] [CONS] Routine Labs Pending at D/C: none Recommended Follow-up Testing/Procedures: none Planned Operative Procedure(s) after DC: none Hospital Course: Her strength improved and it was felt she was stable to return home with home health. I have seen this patient for a [id number] visit on 09/29/2017 regarding the conditions for which she will require home health. These conditions are weakness secondary to her hospitalization for pneumonia and asthma exacerbation. She will need correction for medication set up, vital sign monitoring, etc. She will need PT and OT for strengthening. She is homebound as she requires the use of an assistive device and another individual to leave the home. I will follow her home health plan of care. - Patient Instructions Diet: Usual Diet as Tolerated Activity: As Tolerated - Discharge Plan Home Medications: Home Meds Acetaminophen [Tylenol Arthritis] 650 mg PO QID PRN 09/20/17 [History] Aspirin 81 mg PO DAILY 09/20/17 [History] Cholecalciferol (Vitamin D3) [Vitamin D3] 2,000 unit PO DAILY 09/20/17 [History] Citalopram Hydrobromide [Celexa] 40 mg PO DAILY 09/20/17 [History] Dextromethorphan HBr/Chlor-Mal [Coricidin Hbp Cough & Cold] 1 cap PO DAILY 09/20 [History] Docusate Sodium [Colace] 100 mg PO BID 09/20/17 [History] Lactulose 15 ml PO BID 09/20/17 [History] Lisinopril 10 mg PO DAILY 09/20/17 [History] Multivitamin [Multivitamins] 1 tab PO DAILY 09/20/17 [History] Omeprazole 20 mg PO DAILY 09/20/17 [History] Valerian Root [Valerian] 450 mg PO DAILY 09/20/17 [History] atorvaSTATin [Lipitor] 40 mg PO DAILY 09/20/17 [History] Diltiazem [Cardizem CD] 240 mg PO DAILY #0 09/29/17 [Rx] Referrals: Gillian Dsa MD [Primary Care Provider] - 10/12/17 10:20 am (You have a follow up appt. with Dr. Lizeth Das on October 12, 2017 at 10:20 at [facility]) - Discharge Summary/Plan Comment DC Time >30 min.: No - General Info Date of Service: 09/29/17 Subjective Update: Patient feels well this morning. She is looking forward to going home. Pain is well controlled. She no longer has any cough or shortness of breath. She is eating well. She has no questions. - Review of Systems General: Reports: No Symptoms HEENT: Reports: No Symptoms Pulmonary: Reports: No Symptoms Cardiovascular: Reports: No Symptoms Gastrointestinal: Reports: No Symptoms Genitourinary: Reports: No Symptoms Musculoskeletal: Reports: No Symptoms Skin: Reports: No Symptoms - Patient Data Vitals - Most Recent: Last Vital Signs Temp 36.5 C 09/29/17 06:00 Pulse 93 09/29/17 06:00 Resp 19 09/29/17 06:00 BP 154/71 H 09/29/17 08:13 Pulse Ox 97 09/29/17 07:06 I&O - Last 24 hours: Intake & Output 09/28/17 09/29/17 09/29/17 22:59 06:59 14:59 Intake Total 1340 360 Balance 1340 360 Lab Results - Last 24 hrs: Laboratory Results - last 24 hr 09/28/17 09/28/17 09/28/17 Range/Units 06:42 11:25 17:24 POC Glucose 127 H 141 H 181 H (74-106) mg/dL 09/29/17 Range/Units 05:54 POC Glucose 111 H (74-106) mg/dL Med Orders - Current: Current Medications Acetaminophen (Tylenol Arthritis Pain) 650 mg PO QID PRN PRN Reason: Pain Last Admin: 09/29/17 05:51 Dose: 650 mg Albuterol (Proventil Neb Soln) 2.5 mg NEB Q6H PRN PRN Reason: wheezing, shortness of breath Albuterol (Proventil Neb Soln) 2.5 mg NEB QIDRT [facility] Last Admin: 09/29/17 10:28 Dose: 2.5 mg Aspirin (Halfprin) 81 mg PO DAILY [facility] Last Admin: 09/29/17 08:12 Dose: 81 mg Atorvastatin Calcium (Lipitor) 40 mg PO DAILY [facility] Last Admin: 09/29/17 08:14 Dose: 40 mg Cholecalciferol (Vitamin D3) 2,000 units PO DAILY [facility] Last Admin: 09/29/17 08:13 Dose: 2,000 units Diltiazem HCl (Cardizem Cd) 240 mg PO DAILY [facility] Last Admin: 09/29/17 08:12 Dose: 240 mg Enoxaparin Sodium (Lovenox) 40 mg SUBCUT DAILY [facility] Last Admin: 09/29/17 08:14 Dose: 40 mg Lisinopril (Prinivil) 10 mg PO DAILY [facility] Last Admin: 09/29/17 08:13 Dose: 10 mg Magnesium Oxide (Magnesium Oxide) 400 mg PO DAILY [facility] Last Admin: 09/29/17 08:12 Dose: 400 mg Miconazole (Miconazole 2% Vaginal) 0 gm TOP BID [facility] Last Admin: 09/29/17 08:14 Dose: 1 applic Omeprazole (Omeprazole) 20 mg PO ACBREAKFAST [facility] Last Admin: 09/29/17 06:00 Dose: 20 mg Sodium Chloride (Saline Flush) 10 ml FLUSH ASDIRECTED PRN PRN Reason: Other Discontinued Medications Aspirin (Aspirin) 81 mg PO DAILY [facility] Last Admin: 09/25/17 07:00 Dose: Not Given Azithromycin (Zithromax) 500 mg PO Q24H [facility] Stop: 09/24/17 12:01 Last Admin: 09/24/17 11:01 Dose: 500 mg Cefuroxime Axetil (Ceftin) 250 mg PO BID [facility] Cefuroxime Axetil (Ceftin) 250 mg PO BID [facility] Stop: 09/27/17 20:01 Last Admin: 09/27/17 21:51 Dose: 250 mg Diltiazem HCl (Cardizem Cd) 120 mg PO DAILY [facility] Last Admin: 09/26/17 08:02 Dose: 120 mg Diltiazem HCl (Cardizem Cd) 120 mg PO ONETIME ONE Stop: 09/26/17 10:16 Last Admin: 09/26/17 10:39 Dose: 120 mg Hydromorphone HCl (Dilaudid) 2 mg PO Q8H PRN PRN Reason: Pain Last Admin: 09/25/17 20:44 Dose: 2 mg Prednisone (Prednisone) 20 mg PO DAILY [facility] Stop: 09/28/17 23:00 Last Admin: 09/28/17 07:46 Dose: 20 mg - Exam General: Reports: Alert, Cooperative, No Acute Distress HEENT: Reports: Mucous Membr. Moist/[place] Neck: Reports: Supple, Trachea Midline, No Thyromegaly. Denies: Lymphadenopathy Lungs: Reports: Clear to Auscultation, Normal Respiratory Effort Cardiovascular: Reports: Regular Rate, Regular Rhythm, No Murmurs GI/Abdominal Exam: Normal Bowel Sounds, Soft, Non-Tender, No Organomegaly, No Distention, No Mass Extremities: Non-Tender, No Pedal Edema, Normal Capillary Refill Skin: Reports: Warm, Dry, Intact Neurological: Reports: No New Focal Deficit *Q Meaningful Use (DIS) - VTE *Q VTE Criteria *Q: - Stroke *Q Stroke Criteria *Q: - AMI *Q AMI Criteria *Q:
== END 2017-09-29 13:00 | disposition home health service (06) | DRG 947 ==
LOC: VM.MS 10:17
PROVIDERS: ADMIT Internal Medicine; ATTEND Family Medicine
DX: R53.1 Weakness (principal); J18.9 Pneumonia, unspecified organism; J45.901 Unspecified asthma with (acute) exacerbation; I69.354 Hemiplegia and hemiparesis following cerebral infarction affecting left non-dominant side; I10 Essential (primary) hypertension; F39 Unspecified mood [affective] disorder; Z79.82 Long term (current) use of aspirin; Z79.899 Other long term (current) drug therapy
CPT/HCPCS: 36415; 82962; 85027; 94640; 94760; 97110-GP; 97530-GP; A9270-GY; J1650; J7620-GY

== ENCOUNTER 2017-10-12 11:34 | Emergency (ER) | payer MEDICARE, OTHER ==
[2017-10-12] MEDS ORDERED: Oxymetazoline 0.05% Nasal Spray 15 ML Bottle NAS ONE (11:36)
--- NOTE | 2017-10-18 18:17 | EDM.PDOC ---
ED HPI GENERAL MEDICAL PROBLEM - General Chief Complaint: ENT Problem Stated Complaint: UNCONTROLLABLE NOSE BLEED Time Seen by Provider: 10/12/17 11:35 Source of Information: Reports: Patient History Limitations: Reports: No Limitations - History of Present Illness INITIAL COMMENTS - FREE TEXT/NARRATIVE: PtKeiko was brought over from the clinic with epistaxis from her L nare. She states that it had been bleeding intermittently for less than an hour. No lightheadedness. No shortness of breath. No weakness. She denies facial trauma, and states that her house is very dry. Location: Reports: Face - Related Data Allergies Allergy/AdvReac Type Severity Reaction Status Date / Time Sulfa (Sulfonamide Allergy Hives Verified 10/12/17 11:51 Antibiotics) tramadol Allergy Dizziness Verified 10/12/17 11:51 Home Meds: Home Meds Acetaminophen [Tylenol Arthritis] 650 mg PO QID PRN 09/20/17 [History] Aspirin 81 mg PO DAILY 09/20/17 [History] Cholecalciferol (Vitamin D3) [Vitamin D3] 2,000 unit PO DAILY 09/20/17 [History] Citalopram Hydrobromide [Celexa] 40 mg PO DAILY 09/20/17 [History] Dextromethorphan HBr/Chlor-Mal [Coricidin Hbp Cough & Cold] 1 cap PO DAILY 09/20 [History] Docusate Sodium [Colace] 100 mg PO BID 09/20/17 [History] Lactulose 15 ml PO BID 09/20/17 [History] Lisinopril 10 mg PO DAILY 09/20/17 [History] Multivitamin [Multivitamins] 1 tab PO DAILY 09/20/17 [History] Omeprazole 20 mg PO DAILY 09/20/17 [History] Valerian Root [Valerian] 450 mg PO DAILY 09/20/17 [History] atorvaSTATin [Lipitor] 40 mg PO DAILY 09/20/17 [History] Diltiazem [Cardizem CD] 240 mg PO DAILY #0 09/29/17 [Rx] Past Medical History HEENT History: Reports: Other (See Below) Other HEENT History: rhinitis. 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 tolerance Hematologic History: Reports: None Immunologic History: Reports: None Oncologic (Cancer) History: Reports: None Dermatologic History: Reports: None - Infectious Disease History Infectious Disease History: Reports: None - Past Surgical History GI Surgical History: Reports: Appendectomy, Cholecystectomy, Colonoscopy Female Surgical History: Reports: Hysterectomy Endocrine Surgical History: Reports: Thyroidectomy Musculoskeletal Surgical History: Reports: Hip Replacement, Knee Replacement Social & Family History - Family History Family Medical History: Noncontributory Respiratory: Reports: COPD Endocrine/Metabolic: Reports: Diabetes, type II Oncologic: Reports: Breast - Tobacco Use Smoking Status *Q: Never Smoker - Caffeine Use Caffeine Use: Reports: None - Recreational Drug Use Recreational Drug Use: No - Living Situation & Occupation Living situation: Reports: Single, Alone Occupation: Retired ED ROS ENT - Review of Systems Review Of Systems: See Below Constitutional: Reports: No Symptoms HEENT: Reports: Other (epistaxis) Respiratory: Reports: No Symptoms Cardiovascular: Reports: No Symptoms Endocrine: Reports: No Symptoms GI/Abdominal: Reports: No Symptoms : Reports: No Symptoms Musculoskeletal: Reports: No Symptoms Skin: Reports: No Symptoms Neurological: Reports: No Symptoms Psychiatric: Reports: No Symptoms Hematologic/Lymphatic: Reports: No Symptoms Immunologic: Reports: No Symptoms ED EXAM, ENT - Physical Exam Exam: See Below Exam Limited By: No Limitations General Appearance: Alert, WD/WN, No Apparent Distress Nose: Dried Blood (L nare. No active bleeding) ED ENT PROCEDURES - Epistaxis Procedure Indication: Epistaxis Recent anticoagulants/antiplatlets: No Uncontrolled HTN: No Recent septal/nasal surgery: No Site of bleeding: Left Nare Clearing of clots: Suction Topical Meds: Phenylephrine Ice pack to area: No Chemical cautery: Silver Nitrate Topical Anterior Packing: Plain Gauze Strip Local anesthesia - Lidocaine (Xylocaine): 1% Plain Complications: No Course - Vital Signs Last Recorded V/S: Last Vital Signs Temp 37.6 C 10/12/17 11:35 Pulse 122 H 10/12/17 11:35 Resp 18 10/12/17 11:35 BP 121/73 10/12/17 11:35 Pulse Ox 92 L 10/12/17 11:35 - Orders/Labs/Meds Meds: Medications Discontinued Medications Generic Name Dose Route Start Last Admin Trade Name Betty PRN Reason Stop Dose Admin Lidocaine HCl 5 ml 10/12/17 11:37 10/12/17 11:52 Xylocaine-Mpf 1% INJECT 10/12/17 11:38 5 ml ONETIME ONE Administration Oxymetazoline HCl 1 ml 10/12/17 11:36 10/12/17 11:52 Afrin Original 0.05% Nasal [place] ANNIE 10/12/17 11:37 1 ml ONETIME ONE Administration Departure - Departure Time of Disposition: 12:53 Disposition: Home, Self-Care 01 Condition: Good Clinical Impression: Epistaxis - Discharge Information Instructions: Nosebleed, [id number] Referrals: Gillian Das MD [Primary Care Provider] - Forms: ED Department Discharge Additional Instructions: Remove packing material tomorrow. Return to ER if recurrent bleeding.
== END 2017-10-12 12:53 | disposition home or self-care (01) ==
LOC: VM.ED 11:34
DX: R04.0 Epistaxis (principal); I10 Essential (primary) hypertension; E78.00 Pure hypercholesterolemia, unspecified; Z88.2 Allergy status to sulfonamides; Z88.6 Allergy status to analgesic agent; Z79.82 Long term (current) use of aspirin; Z79.899 Other long term (current) drug therapy
CPT/HCPCS: 30901; 99283; A9270

== ENCOUNTER 2022-11-21 09:39 | Inpatient (IN) | payer MEDICARE, OTHER, MEDICAID ==
[2022-11-21] MEDS ORDERED: Sodium Chloride 0.9% 10 ML Syringe FLUSH PRN (09:46)
[2022-11-21] MEDS ORDERED: Acetaminophen 500 MG Tab PO ONE (09:52)
[2022-11-21] MEDS ORDERED: cefTRIAXone 2 GM Vial IVPUSH ONE (10:11)
[2022-11-21] MEDS ORDERED: Azithromycin 500 MG in Sodium Chloride 0.9% 250 ML IV ONE (10:12)
[2022-11-21 10:24] LABS: PTT,PARTIAL THROMBOPLSTIN TIME 27.5 SEC (20.5-30.9)
[2022-11-21 10:35] LABS: ANION GAP 11.8 mmol/L (5-15); CHLORIDE,CL 95 mmol/L (98-107); ESTIMATED GFR 57 mL/min (>=60); SODIUM,NA 133 mmol/L (136-145)
[2022-11-21 11:00] LABS: CORONAVIRUS COVID-19 NAA POSITIVE (NEGATIVE); RESPIRATORY SYNCYTIAL VIR NAA NEGATIVE (NEGATIVE)
[2022-11-21] MEDS ORDERED: REMDESIVIR 200 MG in Sodium Chloride 0.9% 250 ML IV ONE (11:13)
[2022-11-21] MEDS ORDERED: dexAMETHasone 2 MG, dexAMETHasone 4 MG PO ONE ×2 (11:14)
[2022-11-21] MEDS ORDERED: Ondansetron 4 MG Tab.DIS PO PRN (13:45)
[2022-11-21] MEDS ORDERED: Acetaminophen 650 MG Tab.ER PO PRN (13:57)
[2022-11-21] MEDS ORDERED: Sodium Chloride 0.9% 1,000 ML IV SCH (14:00)
[2022-11-21] MEDS: hydrALAZINE 25 MG Tab PO SCH ×2 (18:45→22:14)
[2022-11-21] MEDS: Pramipexole 0.125 MG Tab PO SCH ×2 (20:27→22:03)
[2022-11-21] MEDS: Lisinopril 10 MG Tab PO SCH (20:30)
[2022-11-21] MEDS: Diltiazem 120 MG Cap.CD PO SCH (20:30)
[2022-11-21] MEDS: Enoxaparin 40 MG/0.4 ML Syringe SUBCUT SCH (20:33)
[2022-11-22] MEDS: hydrALAZINE 25 MG Tab PO SCH ×4 (09:03→20:34)
[2022-11-22] MEDS: Diltiazem 120 MG Cap.CD PO SCH ×2 (09:04→20:32)
[2022-11-22] MEDS: Aspirin 81 MG Tab.Chew PO SCH (09:05)
[2022-11-22] MEDS: Citalopram 20 MG Tab PO SCH (09:05)
[2022-11-22] MEDS: Cholecalciferol (Vitamin D3) 25 MCG Tab PO SCH (09:05)
[2022-11-22] MEDS: Lisinopril 10 MG Tab PO SCH ×2 (09:06→20:33)
[2022-11-22] MEDS: dexAMETHasone 2 MG, dexAMETHasone 4 MG PO SCH ×2 (09:07)
[2022-11-22] MEDS: Hydrochlorothiazide 25 MG Tab PO SCH (09:07)
[2022-11-22] MEDS: atorvaSTATin 40 MG Tab PO SCH (09:07)
[2022-11-22] MEDS: Multivitamin Tab PO SCH (09:08)
[2022-11-22] MEDS ORDERED: Dexamethasone 1 MG/ML Oral Drops 4 ML UD Cup PO SCH (13:00)
[2022-11-22] MEDS: REMDESIVIR 100 MG in Sodium Chloride 0.9% 100 ML IV SCH (13:28)
[2022-11-22] MEDS ORDERED: Polyethylene Glycol 3350 Powder 17 GM Packet PO PRN (14:33)
[2022-11-22] MEDS: Enoxaparin 40 MG/0.4 ML Syringe SUBCUT SCH (20:31)
[2022-11-22] MEDS: Pramipexole 0.125 MG Tab PO SCH ×2 (20:34→22:21)
[2022-11-23] MEDS: hydrALAZINE 25 MG Tab PO SCH ×4 (08:03→20:45)
[2022-11-23] MEDS: Citalopram 20 MG Tab PO SCH (08:03)
[2022-11-23] MEDS: Aspirin 81 MG Tab.Chew PO SCH (08:03)
[2022-11-23] MEDS: Lisinopril 10 MG Tab PO SCH (08:06)
[2022-11-23] MEDS: Hydrochlorothiazide 25 MG Tab PO SCH (08:07)
[2022-11-23] MEDS: Diltiazem 120 MG Cap.CD PO SCH ×2 (08:07→20:44)
[2022-11-23] MEDS: Cholecalciferol (Vitamin D3) 25 MCG Tab PO SCH (08:07)
[2022-11-23] MEDS: atorvaSTATin 40 MG Tab PO SCH (08:08)
[2022-11-23] MEDS: dexAMETHasone 2 MG, dexAMETHasone 4 MG PO SCH ×2 (08:08)
[2022-11-23] MEDS: Multivitamin Tab PO SCH (08:08)
[2022-11-23] MEDS: REMDESIVIR 100 MG in Sodium Chloride 0.9% 100 ML IV SCH (13:03)
[2022-11-23] MEDS: Enoxaparin 40 MG/0.4 ML Syringe SUBCUT SCH (20:44)
[2022-11-23] MEDS: Lisinopril 20 MG Tab PO SCH (20:45)
[2022-11-23] MEDS: Pramipexole 0.125 MG Tab PO SCH ×2 (20:45→22:12)
[2022-11-24 07:20] LABS: ANION GAP 10.3 mmol/L (5-15)
[2022-11-24] MEDS: dexAMETHasone 2 MG, dexAMETHasone 4 MG PO SCH ×2 (08:36)
[2022-11-24] MEDS: Aspirin 81 MG Tab.Chew PO SCH (08:36)
[2022-11-24] MEDS: Cholecalciferol (Vitamin D3) 25 MCG Tab PO SCH (08:37)
[2022-11-24] MEDS: hydrALAZINE 25 MG Tab PO SCH ×4 (08:37→20:04)
[2022-11-24] MEDS: Diltiazem 120 MG Cap.CD PO SCH ×2 (08:37→20:05)
[2022-11-24] MEDS: Lisinopril 20 MG Tab PO SCH ×2 (08:37→20:05)
[2022-11-24] MEDS: Hydrochlorothiazide 25 MG Tab PO SCH (08:37)
[2022-11-24] MEDS: atorvaSTATin 40 MG Tab PO SCH (08:38)
[2022-11-24] MEDS: Citalopram 20 MG Tab PO SCH (08:38)
[2022-11-24] MEDS: Multivitamin Tab PO SCH (08:38)
[2022-11-24] MEDS: REMDESIVIR 100 MG in Sodium Chloride 0.9% 100 ML IV SCH (14:15)
[2022-11-24] MEDS: Enoxaparin 40 MG/0.4 ML Syringe SUBCUT SCH (20:04)
[2022-11-24] MEDS: Pramipexole 0.125 MG Tab PO SCH ×2 (20:05→22:29)
[2022-11-25] MEDS: dexAMETHasone 2 MG, dexAMETHasone 4 MG PO SCH ×2 (08:01)
[2022-11-25] MEDS: atorvaSTATin 40 MG Tab PO SCH (08:01)
[2022-11-25] MEDS: Diltiazem 120 MG Cap.CD PO SCH (08:02)
[2022-11-25] MEDS: Multivitamin Tab PO SCH (08:02)
[2022-11-25] MEDS: Cholecalciferol (Vitamin D3) 25 MCG Tab PO SCH (08:02)
[2022-11-25] MEDS: Aspirin 81 MG Tab.Chew PO SCH (08:02)
[2022-11-25] MEDS: hydrALAZINE 25 MG Tab PO SCH ×2 (08:03→13:28)
[2022-11-25] MEDS: Lisinopril 20 MG Tab PO SCH (08:03)
[2022-11-25] MEDS: Citalopram 20 MG Tab PO SCH (08:03)
[2022-11-25] MEDS: Hydrochlorothiazide 25 MG Tab PO SCH (08:03)
[2022-11-25 08:11] LABS: ANION GAP 10.1 mmol/L (5-15)
[2022-11-25] MEDS ORDERED: REMDESIVIR 100 MG in Sodium Chloride 0.9% 100 ML IV ONE (09:00)
== END 2022-11-25 13:48 | disposition swing bed (61) | DRG 177 ==
LOC: VM.ED 09:39 → VM.MS 11:26
PROVIDERS: ADMIT Nurse Practitioner Family; ATTEND Nurse Practitioner Family
PROC: XW033E5 Introduction of Remdesivir Anti-infective into Peripheral Vein, Percutaneous Approach, New Technology Group 5 (ICD-10-PCS; principal; 2022-11-21)
PROC: 3E0333Z Introduction of Anti-inflammatory into Peripheral Vein, Percutaneous Approach (ICD-10-PCS; 2022-11-21)
DX: U07.1 COVID-19 (principal); J12.82 Pneumonia due to coronavirus disease 2019; J96.01 Acute respiratory failure with hypoxia; I69.354 Hemiplegia and hemiparesis following cerebral infarction affecting left non-dominant side; M62.82 Rhabdomyolysis; J98.11 Atelectasis; Z66 Do not resuscitate; W18.30XA Fall on same level, unspecified, initial encounter; M19.90 Unspecified osteoarthritis, unspecified site; R13.10 Dysphagia, unspecified; E04.1 Nontoxic single thyroid nodule; Z96.659 Presence of unspecified artificial knee joint; Z96.649 Presence of unspecified artificial hip joint; E89.0 Postprocedural hypothyroidism; R73.02 Impaired glucose tolerance (oral); K59.00 Constipation, unspecified; G47.33 Obstructive sleep apnea (adult) (pediatric); I10 Essential (primary) hypertension; K21.9 Gastro-esophageal reflux disease without esophagitis; Y92.89 Other specified places as the place of occurrence of the external cause; I69.391 Dysphagia following cerebral infarction; Z79.82 Long term (current) use of aspirin; Z79.899 Other long term (current) drug therapy; Z90.49 Acquired absence of other specified parts of digestive tract; Z98.890 Other specified postprocedural states; Z90.710 Acquired absence of both cervix and uterus; Z88.8 Allergy status to other drugs, medicaments and biological substances; Z88.2 Allergy status to sulfonamides
CPT/HCPCS: 0241U; 36415; 71045; 80053; 80076; 80307; 81001; 82550; 83605; 83735; 83880; 84100; 84484; 85025; 85610; 85730; 86140; 87040; 93005; 93010; 94760; 96365; 96375; 97110-GP; 97162-GP; 97530-GP; 99284; 99285-25; A9270-GY; J0248; J0456; J0696; J1650; J7030; J7050; J8540

== ENCOUNTER 2022-11-25 12:43 | Inpatient (IN) | payer MEDICARE, OTHER, MEDICAID ==
[2022-11-25] MEDS ORDERED: Non-Formulary Medication 1 Each (Clobetasol [Temovate 0.05%] 25 ML Bottle) TOP PRN (13:01)
[2022-11-25] MEDS ORDERED: Hydrocortisone 2.5% Crm 30 GM Tube TOP PRN (13:02)
[2022-11-25] MEDS ORDERED: Non-Formulary Medication 1 Each (Fluticasone Propionate [Flonase] 16 GM Bottle) NAS PRN (13:02)
[2022-11-25] MEDS: hydrALAZINE 25 MG Tab PO SCH ×2 (17:56→20:34)
[2022-11-25] MEDS: Diltiazem 120 MG Cap.CD PO SCH (20:34)
[2022-11-25] MEDS: Lisinopril 10 MG Tab PO SCH (20:34)
[2022-11-25] MEDS: Pramipexole 0.125 MG Tab PO SCH ×2 (20:34→22:00)
[2022-11-26] MEDS: Aspirin 81 MG Tab.Chew PO SCH (09:06)
[2022-11-26] MEDS: hydrALAZINE 25 MG Tab PO SCH ×4 (09:07→20:21)
[2022-11-26] MEDS: Lisinopril 10 MG Tab PO SCH ×2 (09:07→20:24)
[2022-11-26] MEDS: Hydrochlorothiazide 25 MG Tab PO SCH (09:07)
[2022-11-26] MEDS: Diltiazem 120 MG Cap.CD PO SCH ×2 (09:07→20:24)
[2022-11-26] MEDS: Dexamethasone 4 MG Tab PO SCH (09:08)
[2022-11-26] MEDS: Multivitamin Tab PO SCH (09:08)
[2022-11-26] MEDS: Dexamethasone 2 MG Tab PO SCH (09:08)
[2022-11-26] MEDS: Citalopram 20 MG Tab PO SCH (09:08)
[2022-11-26] MEDS: atorvaSTATin 40 MG Tab PO SCH (09:09)
[2022-11-26] MEDS: Cholecalciferol (Vitamin D3) 25 MCG Tab PO SCH (09:09)
[2022-11-26] MEDS: Acetaminophen 650 MG Tab.ER PO PRN ×2 (09:31→20:35)
[2022-11-26] MEDS: Pramipexole 0.125 MG Tab PO SCH ×2 (20:24→22:01)
[2022-11-27] MEDS: Dexamethasone 4 MG Tab PO SCH (09:02)
[2022-11-27] MEDS: Citalopram 20 MG Tab PO SCH (09:03)
[2022-11-27] MEDS: hydrALAZINE 25 MG Tab PO SCH ×4 (09:03→20:27)
[2022-11-27] MEDS: Cholecalciferol (Vitamin D3) 25 MCG Tab PO SCH (09:03)
[2022-11-27] MEDS: Aspirin 81 MG Tab.Chew PO SCH (09:03)
[2022-11-27] MEDS: Dexamethasone 2 MG Tab PO SCH (09:03)
[2022-11-27] MEDS: Diltiazem 120 MG Cap.CD PO SCH ×2 (09:03→20:28)
[2022-11-27] MEDS: Lisinopril 10 MG Tab PO SCH ×2 (09:03→20:27)
[2022-11-27] MEDS: atorvaSTATin 40 MG Tab PO SCH (09:04)
[2022-11-27] MEDS: Multivitamin Tab PO SCH (09:04)
[2022-11-27] MEDS: Hydrochlorothiazide 25 MG Tab PO SCH (09:04)
[2022-11-27] MEDS: Pramipexole 0.125 MG Tab PO SCH ×2 (20:27→23:46)
[2022-11-28] MEDS: Lisinopril 10 MG Tab PO SCH ×2 (08:58→20:09)
[2022-11-28] MEDS: Diltiazem 120 MG Cap.CD PO SCH ×2 (08:58→20:08)
[2022-11-28] MEDS: hydrALAZINE 25 MG Tab PO SCH ×4 (08:59→20:10)
[2022-11-28] MEDS: Cholecalciferol (Vitamin D3) 25 MCG Tab PO SCH (08:59)
[2022-11-28] MEDS: Citalopram 20 MG Tab PO SCH (08:59)
[2022-11-28] MEDS: Aspirin 81 MG Tab.Chew PO SCH (08:59)
[2022-11-28] MEDS: Multivitamin Tab PO SCH (08:59)
[2022-11-28] MEDS: Hydrochlorothiazide 25 MG Tab PO SCH (08:59)
[2022-11-28] MEDS: atorvaSTATin 40 MG Tab PO SCH (08:59)
[2022-11-28] MEDS: Pramipexole 0.125 MG Tab PO SCH (20:08)
[2022-11-29] MEDS: Aspirin 81 MG Tab.Chew PO SCH (08:13)
[2022-11-29] MEDS: Cholecalciferol (Vitamin D3) 25 MCG Tab PO SCH (08:13)
[2022-11-29] MEDS: atorvaSTATin 40 MG Tab PO SCH (08:14)
[2022-11-29] MEDS: Multivitamin Tab PO SCH (08:14)
[2022-11-29] MEDS: hydrALAZINE 25 MG Tab PO SCH ×4 (08:14→20:27)
[2022-11-29] MEDS: Hydrochlorothiazide 25 MG Tab PO SCH (08:14)
[2022-11-29] MEDS: Citalopram 20 MG Tab PO SCH (08:15)
[2022-11-29] MEDS: Diltiazem 120 MG Cap.CD PO SCH ×2 (08:15→20:29)
[2022-11-29] MEDS: Lisinopril 10 MG Tab PO SCH ×2 (08:56→20:28)
[2022-11-29] MEDS: Pramipexole 0.125 MG Tab PO SCH (20:27)
[2022-11-30] MEDS: Lisinopril 10 MG Tab PO SCH ×2 (08:53→21:54)
[2022-11-30] MEDS: Citalopram 20 MG Tab PO SCH (08:53)
[2022-11-30] MEDS: Hydrochlorothiazide 25 MG Tab PO SCH (08:54)
[2022-11-30] MEDS: Cholecalciferol (Vitamin D3) 25 MCG Tab PO SCH (08:54)
[2022-11-30] MEDS: Diltiazem 120 MG Cap.CD PO SCH ×2 (08:55→21:47)
[2022-11-30] MEDS: atorvaSTATin 40 MG Tab PO SCH (08:55)
[2022-11-30] MEDS: Aspirin 81 MG Tab.Chew PO SCH (08:56)
[2022-11-30] MEDS: hydrALAZINE 25 MG Tab PO SCH ×4 (08:56→23:06)
[2022-11-30] MEDS: Multivitamin Tab PO SCH (08:56)
[2022-11-30] MEDS: Pramipexole 0.125 MG Tab PO SCH (21:47)
[2022-12-01] MEDS: Aspirin 81 MG Tab.Chew PO SCH (09:35)
[2022-12-01] MEDS: Diltiazem 120 MG Cap.CD PO SCH ×2 (09:36→21:45)
[2022-12-01] MEDS: Citalopram 20 MG Tab PO SCH (09:36)
[2022-12-01] MEDS: hydrALAZINE 25 MG Tab PO SCH ×4 (09:38→21:47)
[2022-12-01] MEDS: Lisinopril 10 MG Tab PO SCH ×2 (09:38→21:46)
[2022-12-01] MEDS: atorvaSTATin 40 MG Tab PO SCH (09:39)
[2022-12-01] MEDS: Hydrochlorothiazide 25 MG Tab PO SCH (09:39)
[2022-12-01] MEDS: Multivitamin Tab PO SCH (09:39)
[2022-12-01] MEDS: Cholecalciferol (Vitamin D3) 25 MCG Tab PO SCH (09:39)
[2022-12-01] MEDS ORDERED: guaiFENesin 600 MG Tab.ER PO ONE (18:15)
[2022-12-01] MEDS: Pramipexole 0.125 MG Tab PO SCH (21:46)
[2022-12-02] MEDS: Aspirin 81 MG Tab.Chew PO SCH (08:38)
[2022-12-02] MEDS: Diltiazem 120 MG Cap.CD PO SCH ×2 (08:39→21:20)
[2022-12-02] MEDS: Multivitamin Tab PO SCH (08:39)
[2022-12-02] MEDS: hydrALAZINE 25 MG Tab PO SCH ×4 (08:39→21:22)
[2022-12-02] MEDS: Cholecalciferol (Vitamin D3) 25 MCG Tab PO SCH (08:39)
[2022-12-02] MEDS: guaiFENesin 600 MG Tab.ER PO SCH ×2 (08:40→21:22)
[2022-12-02] MEDS: atorvaSTATin 40 MG Tab PO SCH (08:40)
[2022-12-02] MEDS: Hydrochlorothiazide 25 MG Tab PO SCH (08:40)
[2022-12-02] MEDS: Citalopram 20 MG Tab PO SCH (08:40)
[2022-12-02] MEDS: Lisinopril 10 MG Tab PO SCH ×2 (08:40→21:21)
[2022-12-02] MEDS: Pramipexole 0.125 MG Tab PO SCH (21:19)
[2022-12-03] MEDS: guaiFENesin 600 MG Tab.ER PO SCH ×2 (08:40→21:28)
[2022-12-03] MEDS: Citalopram 20 MG Tab PO SCH (08:40)
[2022-12-03] MEDS: Lisinopril 10 MG Tab PO SCH ×2 (08:40→21:30)
[2022-12-03] MEDS: Cholecalciferol (Vitamin D3) 25 MCG Tab PO SCH (08:40)
[2022-12-03] MEDS: Multivitamin Tab PO SCH (08:40)
[2022-12-03] MEDS: hydrALAZINE 25 MG Tab PO SCH ×4 (08:41→21:29)
[2022-12-03] MEDS: Hydrochlorothiazide 25 MG Tab PO SCH (08:41)
[2022-12-03] MEDS: atorvaSTATin 40 MG Tab PO SCH (08:41)
[2022-12-03] MEDS: Aspirin 81 MG Tab.Chew PO SCH (08:41)
[2022-12-03] MEDS: Diltiazem 120 MG Cap.CD PO SCH ×2 (08:41→22:07)
[2022-12-03] MEDS: Pramipexole 0.125 MG Tab PO SCH (21:29)
[2022-12-04] MEDS: Cholecalciferol (Vitamin D3) 25 MCG Tab PO SCH (08:22)
[2022-12-04] MEDS: Hydrochlorothiazide 25 MG Tab PO SCH (08:23)
[2022-12-04] MEDS: Aspirin 81 MG Tab.Chew PO SCH (08:23)
[2022-12-04] MEDS: Multivitamin Tab PO SCH (08:23)
[2022-12-04] MEDS: hydrALAZINE 25 MG Tab PO SCH ×4 (08:24→20:29)
[2022-12-04] MEDS: Lisinopril 10 MG Tab PO SCH ×2 (08:25→20:28)
[2022-12-04] MEDS: guaiFENesin 600 MG Tab.ER PO SCH ×2 (08:25→20:28)
[2022-12-04] MEDS: Citalopram 20 MG Tab PO SCH (08:26)
[2022-12-04] MEDS: atorvaSTATin 40 MG Tab PO SCH (08:26)
[2022-12-04] MEDS: Diltiazem 120 MG Cap.CD PO SCH ×2 (08:29→20:27)
[2022-12-04] MEDS: Pramipexole 0.125 MG Tab PO SCH (20:29)
[2022-12-05] MEDS: Diltiazem 120 MG Cap.CD PO SCH ×2 (08:00→21:02)
[2022-12-05] MEDS: Multivitamin Tab PO SCH (08:00)
[2022-12-05] MEDS: Lisinopril 10 MG Tab PO SCH ×2 (08:00→21:02)
[2022-12-05] MEDS: guaiFENesin 600 MG Tab.ER PO SCH ×2 (08:01→21:01)
[2022-12-05] MEDS: Citalopram 20 MG Tab PO SCH (08:01)
[2022-12-05] MEDS: Cholecalciferol (Vitamin D3) 25 MCG Tab PO SCH (08:01)
[2022-12-05] MEDS: hydrALAZINE 25 MG Tab PO SCH ×4 (08:02→21:03)
[2022-12-05] MEDS: atorvaSTATin 40 MG Tab PO SCH (08:02)
[2022-12-05] MEDS: Aspirin 81 MG Tab.Chew PO SCH (08:03)
[2022-12-05] MEDS: Hydrochlorothiazide 25 MG Tab PO SCH (08:03)
[2022-12-05] MEDS: Pramipexole 0.125 MG Tab PO SCH (21:01)
[2022-12-06] MEDS: Diltiazem 120 MG Cap.CD PO SCH ×2 (08:50→21:34)
[2022-12-06] MEDS: Multivitamin Tab PO SCH (08:51)
[2022-12-06] MEDS: hydrALAZINE 25 MG Tab PO SCH ×4 (08:51→21:35)
[2022-12-06] MEDS: guaiFENesin 600 MG Tab.ER PO SCH ×2 (08:52→21:38)
[2022-12-06] MEDS: Lisinopril 10 MG Tab PO SCH ×2 (08:52→21:36)
[2022-12-06] MEDS: Cholecalciferol (Vitamin D3) 25 MCG Tab PO SCH (08:52)
[2022-12-06] MEDS: Citalopram 20 MG Tab PO SCH (08:52)
[2022-12-06] MEDS: Aspirin 81 MG Tab.Chew PO SCH (08:52)
[2022-12-06] MEDS: Hydrochlorothiazide 25 MG Tab PO SCH (08:52)
[2022-12-06] MEDS: atorvaSTATin 40 MG Tab PO SCH (08:52)
[2022-12-06] MEDS: Pramipexole 0.125 MG Tab PO SCH (21:37)
[2022-12-07] MEDS: Diltiazem 120 MG Cap.CD PO SCH ×2 (08:24→20:21)
[2022-12-07] MEDS: guaiFENesin 600 MG Tab.ER PO SCH ×2 (08:25→20:20)
[2022-12-07] MEDS: Aspirin 81 MG Tab.Chew PO SCH (08:25)
[2022-12-07] MEDS: atorvaSTATin 40 MG Tab PO SCH (08:25)
[2022-12-07] MEDS: Cholecalciferol (Vitamin D3) 25 MCG Tab PO SCH (08:25)
[2022-12-07] MEDS: Multivitamin Tab PO SCH (08:25)
[2022-12-07] MEDS: Hydrochlorothiazide 25 MG Tab PO SCH (08:26)
[2022-12-07] MEDS: hydrALAZINE 25 MG Tab PO SCH ×4 (08:26→20:21)
[2022-12-07] MEDS: Lisinopril 10 MG Tab PO SCH (08:26)
[2022-12-07] MEDS: Citalopram 20 MG Tab PO SCH (08:26)
[2022-12-07] MEDS ORDERED: Bisacodyl 10 MG Supp RECTAL PRN (12:42)
[2022-12-07] MEDS ORDERED: Polyethylene Glycol 3350 Powder 17 GM Packet PO PRN (12:42)
[2022-12-07] MEDS: Pramipexole 0.125 MG Tab PO SCH (20:20)
[2022-12-07] MEDS: Ciprofloxacin 250 MG Tab PO SCH (20:20)
[2022-12-07] MEDS: Lisinopril 20 MG Tab PO SCH (20:22)
[2022-12-08] MEDS: Hydrochlorothiazide 25 MG Tab PO SCH (09:45)
[2022-12-08] MEDS: Multivitamin Tab PO SCH (09:45)
[2022-12-08] MEDS: atorvaSTATin 40 MG Tab PO SCH (09:46)
[2022-12-08] MEDS: Diltiazem 120 MG Cap.CD PO SCH ×2 (09:46→20:22)
[2022-12-08] MEDS: Ciprofloxacin 250 MG Tab PO SCH ×2 (09:46→20:22)
[2022-12-08] MEDS: hydrALAZINE 25 MG Tab PO SCH ×4 (09:49→20:22)
[2022-12-08] MEDS: guaiFENesin 600 MG Tab.ER PO SCH ×2 (09:49→20:22)
[2022-12-08] MEDS: Cholecalciferol (Vitamin D3) 25 MCG Tab PO SCH (09:49)
[2022-12-08] MEDS: Lisinopril 20 MG Tab PO SCH ×2 (09:49→20:22)
[2022-12-08] MEDS: Aspirin 81 MG Tab.Chew PO SCH (09:49)
[2022-12-08] MEDS: Pramipexole 0.125 MG Tab PO SCH (20:22)
[2022-12-09] MEDS: Cholecalciferol (Vitamin D3) 25 MCG Tab PO SCH (09:57)
[2022-12-09] MEDS: Ciprofloxacin 250 MG Tab PO SCH ×2 (09:57→21:54)
[2022-12-09] MEDS: Aspirin 81 MG Tab.Chew PO SCH (09:57)
[2022-12-09] MEDS: Multivitamin Tab PO SCH (09:58)
[2022-12-09] MEDS: atorvaSTATin 40 MG Tab PO SCH (09:58)
[2022-12-09] MEDS: Hydrochlorothiazide 25 MG Tab PO SCH (09:58)
[2022-12-09] MEDS: guaiFENesin 600 MG Tab.ER PO SCH ×2 (09:58→21:53)
[2022-12-09] MEDS: Diltiazem 120 MG Cap.CD PO SCH ×2 (09:59→21:54)
[2022-12-09] MEDS: hydrALAZINE 25 MG Tab PO SCH ×4 (09:59→21:53)
[2022-12-09] MEDS: Lisinopril 20 MG Tab PO SCH ×2 (10:00→21:54)
[2022-12-09] MEDS: Pramipexole 0.125 MG Tab PO SCH (21:54)
[2022-12-10] MEDS: hydrALAZINE 25 MG Tab PO SCH ×4 (10:10→20:02)
[2022-12-10] MEDS: atorvaSTATin 40 MG Tab PO SCH (10:10)
[2022-12-10] MEDS: Lisinopril 20 MG Tab PO SCH ×2 (10:11→20:03)
[2022-12-10] MEDS: Ciprofloxacin 250 MG Tab PO SCH ×2 (10:11→20:03)
[2022-12-10] MEDS: Diltiazem 120 MG Cap.CD PO SCH ×2 (10:11→20:03)
[2022-12-10] MEDS: Aspirin 81 MG Tab.Chew PO SCH (10:11)
[2022-12-10] MEDS: guaiFENesin 600 MG Tab.ER PO SCH ×2 (10:11→20:03)
[2022-12-10] MEDS: Hydrochlorothiazide 25 MG Tab PO SCH (10:12)
[2022-12-10] MEDS: Multivitamin Tab PO SCH (10:12)
[2022-12-10] MEDS: Cholecalciferol (Vitamin D3) 25 MCG Tab PO SCH (10:12)
[2022-12-10] MEDS: Pramipexole 0.125 MG Tab PO SCH (20:03)
[2022-12-11] MEDS: guaiFENesin 600 MG Tab.ER PO SCH ×2 (08:31→20:19)
[2022-12-11] MEDS: Lisinopril 20 MG Tab PO SCH ×2 (08:31→20:18)
[2022-12-11] MEDS: hydrALAZINE 25 MG Tab PO SCH ×4 (08:31→20:19)
[2022-12-11] MEDS: Diltiazem 120 MG Cap.CD PO SCH ×2 (08:32→20:18)
[2022-12-11] MEDS: atorvaSTATin 40 MG Tab PO SCH (08:33)
[2022-12-11] MEDS: Cholecalciferol (Vitamin D3) 25 MCG Tab PO SCH (08:33)
[2022-12-11] MEDS: Multivitamin Tab PO SCH (08:33)
[2022-12-11] MEDS: Aspirin 81 MG Tab.Chew PO SCH (08:33)
[2022-12-11] MEDS: Hydrochlorothiazide 25 MG Tab PO SCH (08:33)
[2022-12-11] MEDS: Pramipexole 0.125 MG Tab PO SCH (20:18)
[2022-12-12] MEDS: Aspirin 81 MG Tab.Chew PO SCH (08:19)
[2022-12-12] MEDS: Multivitamin Tab PO SCH (08:19)
[2022-12-12] MEDS: Hydrochlorothiazide 25 MG Tab PO SCH (08:19)
[2022-12-12] MEDS: Lisinopril 20 MG Tab PO SCH ×2 (08:19→20:38)
[2022-12-12] MEDS: atorvaSTATin 40 MG Tab PO SCH (08:19)
[2022-12-12] MEDS: Cholecalciferol (Vitamin D3) 25 MCG Tab PO SCH (08:20)
[2022-12-12] MEDS: hydrALAZINE 25 MG Tab PO SCH ×4 (08:20→20:39)
[2022-12-12] MEDS: guaiFENesin 600 MG Tab.ER PO SCH ×2 (08:20→20:38)
[2022-12-12] MEDS: Diltiazem 120 MG Cap.CD PO SCH ×2 (08:20→20:39)
[2022-12-12] MEDS: Pramipexole 0.125 MG Tab PO SCH (20:38)
[2022-12-13] MEDS: Aspirin 81 MG Tab.Chew PO SCH (08:38)
[2022-12-13] MEDS: Cholecalciferol (Vitamin D3) 25 MCG Tab PO SCH (08:39)
[2022-12-13] MEDS: Hydrochlorothiazide 25 MG Tab PO SCH (08:39)
[2022-12-13] MEDS: hydrALAZINE 25 MG Tab PO SCH ×4 (08:39→20:32)
[2022-12-13] MEDS: guaiFENesin 600 MG Tab.ER PO SCH ×2 (08:39→20:33)
[2022-12-13] MEDS: atorvaSTATin 40 MG Tab PO SCH (08:39)
[2022-12-13] MEDS: Lisinopril 20 MG Tab PO SCH ×2 (08:39→20:33)
[2022-12-13] MEDS: Diltiazem 120 MG Cap.CD PO SCH ×2 (08:39→20:32)
[2022-12-13] MEDS: Multivitamin Tab PO SCH (08:39)
[2022-12-13] MEDS: Pramipexole 0.125 MG Tab PO SCH (20:33)
[2022-12-14] MEDS: guaiFENesin 600 MG Tab.ER PO SCH ×2 (08:39→20:18)
[2022-12-14] MEDS: Diltiazem 120 MG Cap.CD PO SCH ×2 (08:39→20:18)
[2022-12-14] MEDS: Cholecalciferol (Vitamin D3) 25 MCG Tab PO SCH (08:39)
[2022-12-14] MEDS: hydrALAZINE 25 MG Tab PO SCH ×4 (08:39→20:18)
[2022-12-14] MEDS: Hydrochlorothiazide 25 MG Tab PO SCH (08:40)
[2022-12-14] MEDS: Multivitamin Tab PO SCH (08:40)
[2022-12-14] MEDS: Lisinopril 20 MG Tab PO SCH ×2 (08:40→20:19)
[2022-12-14] MEDS: atorvaSTATin 40 MG Tab PO SCH (08:40)
[2022-12-14] MEDS: Aspirin 81 MG Tab.Chew PO SCH (08:40)
[2022-12-14] MEDS: Pramipexole 0.125 MG Tab PO SCH (20:18)
[2022-12-15] MEDS: Multivitamin Tab PO SCH (08:41)
[2022-12-15] MEDS: atorvaSTATin 40 MG Tab PO SCH (08:41)
[2022-12-15] MEDS: Cholecalciferol (Vitamin D3) 25 MCG Tab PO SCH (08:41)
[2022-12-15] MEDS: Aspirin 81 MG Tab.Chew PO SCH (08:41)
[2022-12-15] MEDS: guaiFENesin 600 MG Tab.ER PO SCH ×2 (08:41→21:39)
[2022-12-15] MEDS: Hydrochlorothiazide 25 MG Tab PO SCH (08:42)
[2022-12-15] MEDS: Diltiazem 120 MG Cap.CD PO SCH ×2 (08:42→21:37)
[2022-12-15] MEDS: hydrALAZINE 25 MG Tab PO SCH ×6 (08:43→21:38)
[2022-12-15] MEDS: Lisinopril 20 MG Tab PO SCH ×2 (08:43→21:39)
[2022-12-15] MEDS: Pramipexole 0.125 MG Tab PO SCH (21:39)
[2022-12-16] MEDS: atorvaSTATin 40 MG Tab PO SCH (09:11)
[2022-12-16] MEDS: Cholecalciferol (Vitamin D3) 25 MCG Tab PO SCH (09:11)
[2022-12-16] MEDS: Diltiazem 120 MG Cap.CD PO SCH ×2 (09:11→21:13)
[2022-12-16] MEDS: guaiFENesin 600 MG Tab.ER PO SCH ×2 (09:12→21:14)
[2022-12-16] MEDS: Hydrochlorothiazide 25 MG Tab PO SCH (09:12)
[2022-12-16] MEDS: Aspirin 81 MG Tab.Chew PO SCH (09:12)
[2022-12-16] MEDS: hydrALAZINE 25 MG Tab PO SCH ×4 (09:12→21:14)
[2022-12-16] MEDS: Multivitamin Tab PO SCH (09:12)
[2022-12-16] MEDS: Lisinopril 20 MG Tab PO SCH ×2 (09:12→21:14)
[2022-12-16] MEDS: Pramipexole 0.125 MG Tab PO SCH (21:14)
[2022-12-17] MEDS: hydrALAZINE 25 MG Tab PO SCH ×4 (09:46→20:03)
[2022-12-17] MEDS: Aspirin 81 MG Tab.Chew PO SCH (09:46)
[2022-12-17] MEDS: Cholecalciferol (Vitamin D3) 25 MCG Tab PO SCH (09:47)
[2022-12-17] MEDS: Lisinopril 20 MG Tab PO SCH ×2 (09:47→20:03)
[2022-12-17] MEDS: Hydrochlorothiazide 25 MG Tab PO SCH (09:47)
[2022-12-17] MEDS: atorvaSTATin 40 MG Tab PO SCH (09:48)
[2022-12-17] MEDS: Diltiazem 120 MG Cap.CD PO SCH ×2 (09:48→20:03)
[2022-12-17] MEDS: guaiFENesin 600 MG Tab.ER PO SCH ×2 (09:48→20:00)
[2022-12-17] MEDS: Multivitamin Tab PO SCH (09:49)
[2022-12-17] MEDS: Pramipexole 0.125 MG Tab PO SCH (20:01)
[2022-12-18] MEDS: Hydrochlorothiazide 25 MG Tab PO SCH (09:05)
[2022-12-18] MEDS: Aspirin 81 MG Tab.Chew PO SCH (09:05)
[2022-12-18] MEDS: Multivitamin Tab PO SCH (09:05)
[2022-12-18] MEDS: hydrALAZINE 25 MG Tab PO SCH ×4 (09:05→21:18)
[2022-12-18] MEDS: guaiFENesin 600 MG Tab.ER PO SCH ×2 (09:05→21:18)
[2022-12-18] MEDS: Diltiazem 120 MG Cap.CD PO SCH ×2 (09:05→21:17)
[2022-12-18] MEDS: Lisinopril 20 MG Tab PO SCH ×2 (09:05→21:18)
[2022-12-18] MEDS: Cholecalciferol (Vitamin D3) 25 MCG Tab PO SCH (09:05)
[2022-12-18] MEDS: atorvaSTATin 40 MG Tab PO SCH (10:04)
[2022-12-18] MEDS: Pramipexole 0.125 MG Tab PO SCH (21:19)
[2022-12-19] MEDS: guaiFENesin 600 MG Tab.ER PO SCH ×2 (08:34→21:27)
[2022-12-19] MEDS: Diltiazem 120 MG Cap.CD PO SCH ×2 (08:34→21:26)
[2022-12-19] MEDS: atorvaSTATin 40 MG Tab PO SCH (08:34)
[2022-12-19] MEDS: Multivitamin Tab PO SCH (08:34)
[2022-12-19] MEDS: Hydrochlorothiazide 25 MG Tab PO SCH (08:34)
[2022-12-19] MEDS: Cholecalciferol (Vitamin D3) 25 MCG Tab PO SCH (08:34)
[2022-12-19] MEDS: Lisinopril 20 MG Tab PO SCH ×2 (08:34→21:26)
[2022-12-19] MEDS: hydrALAZINE 25 MG Tab PO SCH ×4 (08:35→21:27)
[2022-12-19] MEDS: Aspirin 81 MG Tab.Chew PO SCH (08:35)
[2022-12-19] MEDS: Pramipexole 0.125 MG Tab PO SCH (21:26)
[2022-12-20] MEDS: hydrALAZINE 25 MG Tab PO SCH ×4 (08:47→20:35)
[2022-12-20] MEDS: Aspirin 81 MG Tab.Chew PO SCH (08:48)
[2022-12-20] MEDS: Diltiazem 120 MG Cap.CD PO SCH ×2 (08:48→20:33)
[2022-12-20] MEDS: atorvaSTATin 40 MG Tab PO SCH (08:49)
[2022-12-20] MEDS: Hydrochlorothiazide 25 MG Tab PO SCH (08:49)
[2022-12-20] MEDS: guaiFENesin 600 MG Tab.ER PO SCH ×2 (08:50→20:35)
[2022-12-20] MEDS: Multivitamin Tab PO SCH (08:50)
[2022-12-20] MEDS: Lisinopril 20 MG Tab PO SCH ×2 (08:50→20:34)
[2022-12-20] MEDS: Cholecalciferol (Vitamin D3) 25 MCG Tab PO SCH (08:51)
[2022-12-20] MEDS: Acetaminophen 650 MG Tab.ER PO PRN (15:14)
[2022-12-20] MEDS: Pramipexole 0.125 MG Tab PO SCH (20:35)
[2022-12-21] MEDS: Aspirin 81 MG Tab.Chew PO SCH (08:34)
[2022-12-21] MEDS: Multivitamin Tab PO SCH (08:35)
[2022-12-21] MEDS: Acetaminophen 650 MG Tab.ER PO PRN ×2 (08:36→20:32)
[2022-12-21] MEDS: Lisinopril 20 MG Tab PO SCH ×2 (08:37→20:31)
[2022-12-21] MEDS: Diltiazem 120 MG Cap.CD PO SCH ×2 (08:37→20:30)
[2022-12-21] MEDS: Cholecalciferol (Vitamin D3) 25 MCG Tab PO SCH (08:38)
[2022-12-21] MEDS: hydrALAZINE 25 MG Tab PO SCH ×4 (08:39→20:31)
[2022-12-21] MEDS: Hydrochlorothiazide 25 MG Tab PO SCH (08:39)
[2022-12-21] MEDS: guaiFENesin 600 MG Tab.ER PO SCH ×2 (08:39→20:31)
[2022-12-21] MEDS: atorvaSTATin 40 MG Tab PO SCH (08:40)
[2022-12-21] MEDS: Pramipexole 0.125 MG Tab PO SCH (20:30)
[2022-12-22] MEDS: atorvaSTATin 40 MG Tab PO SCH (09:26)
[2022-12-22] MEDS: Diltiazem 120 MG Cap.CD PO SCH ×2 (09:26→20:55)
[2022-12-22] MEDS: Aspirin 81 MG Tab.Chew PO SCH (09:27)
[2022-12-22] MEDS: Cholecalciferol (Vitamin D3) 25 MCG Tab PO SCH (09:28)
[2022-12-22] MEDS: Multivitamin Tab PO SCH (09:28)
[2022-12-22] MEDS: Hydrochlorothiazide 25 MG Tab PO SCH (09:28)
[2022-12-22] MEDS: guaiFENesin 600 MG Tab.ER PO SCH (09:28)
[2022-12-22] MEDS: Lisinopril 20 MG Tab PO SCH ×2 (09:29→20:56)
[2022-12-22] MEDS: hydrALAZINE 25 MG Tab PO SCH ×4 (09:29→20:56)
[2022-12-22] MEDS: Pramipexole 0.125 MG Tab PO SCH (20:56)
[2022-12-23] MEDS: atorvaSTATin 40 MG Tab PO SCH (09:42)
[2022-12-23] MEDS: Hydrochlorothiazide 25 MG Tab PO SCH (09:42)
[2022-12-23] MEDS: Multivitamin Tab PO SCH (09:42)
[2022-12-23] MEDS: Cholecalciferol (Vitamin D3) 25 MCG Tab PO SCH (09:42)
[2022-12-23] MEDS: Acetaminophen 650 MG Tab.ER PO PRN ×2 (09:43→20:27)
[2022-12-23] MEDS: Aspirin 81 MG Tab.Chew PO SCH (09:43)
[2022-12-23] MEDS: Diltiazem 120 MG Cap.CD PO SCH ×2 (09:43→20:27)
[2022-12-23] MEDS: Lisinopril 20 MG Tab PO SCH ×2 (09:44→20:27)
[2022-12-23] MEDS: hydrALAZINE 25 MG Tab PO SCH ×4 (09:44→20:26)
[2022-12-23] MEDS: Pramipexole 0.125 MG Tab PO SCH (20:28)
[2022-12-24 08:19] LABS: ANION GAP 11.7 mmol/L (5-15)
[2022-12-24] MEDS: Diltiazem 120 MG Cap.CD PO SCH ×2 (09:24→20:39)
[2022-12-24] MEDS: Cholecalciferol (Vitamin D3) 25 MCG Tab PO SCH (09:24)
[2022-12-24] MEDS: Hydrochlorothiazide 25 MG Tab PO SCH (09:25)
[2022-12-24] MEDS: Aspirin 81 MG Tab.Chew PO SCH (09:25)
[2022-12-24] MEDS: hydrALAZINE 25 MG Tab PO SCH ×4 (09:25→20:40)
[2022-12-24] MEDS: atorvaSTATin 40 MG Tab PO SCH (09:25)
[2022-12-24] MEDS: Lisinopril 20 MG Tab PO SCH ×2 (09:25→20:41)
[2022-12-24] MEDS: Multivitamin Tab PO SCH (09:25)
[2022-12-24] MEDS: Sodium Chloride/Potassium Chloride Tab PO SCH ×2 (11:26→20:40)
[2022-12-24] MEDS: Pramipexole 0.125 MG Tab PO SCH (20:40)
[2022-12-24] MEDS: Acetaminophen 650 MG Tab.ER PO PRN (20:41)
[2022-12-25] MEDS: hydrALAZINE 25 MG Tab PO SCH ×4 (10:00→20:29)
[2022-12-25] MEDS: Diltiazem 120 MG Cap.CD PO SCH ×2 (10:00→20:29)
[2022-12-25] MEDS: Sodium Chloride/Potassium Chloride Tab PO SCH ×2 (10:00→20:31)
[2022-12-25] MEDS: Lisinopril 20 MG Tab PO SCH ×2 (10:01→20:30)
[2022-12-25] MEDS: Hydrochlorothiazide 25 MG Tab PO SCH (10:01)
[2022-12-25] MEDS: atorvaSTATin 40 MG Tab PO SCH (10:01)
[2022-12-25] MEDS: Aspirin 81 MG Tab.Chew PO SCH (10:02)
[2022-12-25] MEDS: Cholecalciferol (Vitamin D3) 25 MCG Tab PO SCH (10:02)
[2022-12-25] MEDS: Multivitamin Tab PO SCH (10:03)
[2022-12-25] MEDS: Acetaminophen 650 MG Tab.ER PO PRN (20:30)
[2022-12-25] MEDS: Pramipexole 0.125 MG Tab PO SCH (20:30)
[2022-12-26] MEDS: Sodium Chloride/Potassium Chloride Tab PO SCH ×2 (09:57→20:57)
[2022-12-26] MEDS: atorvaSTATin 40 MG Tab PO SCH (09:58)
[2022-12-26] MEDS: Cholecalciferol (Vitamin D3) 25 MCG Tab PO SCH (09:58)
[2022-12-26] MEDS: Multivitamin Tab PO SCH (09:58)
[2022-12-26] MEDS: Hydrochlorothiazide 25 MG Tab PO SCH (09:58)
[2022-12-26] MEDS: Aspirin 81 MG Tab.Chew PO SCH (09:58)
[2022-12-26] MEDS: Diltiazem 120 MG Cap.CD PO SCH ×2 (10:00→20:55)
[2022-12-26] MEDS: Lisinopril 20 MG Tab PO SCH ×2 (10:00→20:57)
[2022-12-26] MEDS: hydrALAZINE 25 MG Tab PO SCH ×4 (10:01→20:56)
[2022-12-26] MEDS: Acetaminophen 650 MG Tab.ER PO PRN (20:56)
[2022-12-26] MEDS: Pramipexole 0.125 MG Tab PO SCH (20:57)
[2022-12-27] MEDS: Aspirin 81 MG Tab.Chew PO SCH (09:10)
[2022-12-27] MEDS: Multivitamin Tab PO SCH (09:10)
[2022-12-27] MEDS: Sodium Chloride/Potassium Chloride Tab PO SCH ×2 (09:11→20:37)
[2022-12-27] MEDS: Diltiazem 120 MG Cap.CD PO SCH ×2 (09:11→20:35)
[2022-12-27] MEDS: atorvaSTATin 40 MG Tab PO SCH (09:11)
[2022-12-27] MEDS: hydrALAZINE 25 MG Tab PO SCH ×4 (09:12→20:36)
[2022-12-27] MEDS: Hydrochlorothiazide 25 MG Tab PO SCH (09:12)
[2022-12-27] MEDS: Lisinopril 20 MG Tab PO SCH ×2 (09:12→20:36)
[2022-12-27] MEDS: Cholecalciferol (Vitamin D3) 25 MCG Tab PO SCH (09:13)
[2022-12-27] MEDS: Nitrofurantoin Monohydrate/Macrocrystalline 100 MG Cap PO SCH (20:36)
[2022-12-27] MEDS: Pramipexole 0.125 MG Tab PO SCH (20:37)
[2022-12-27] MEDS: Acetaminophen 650 MG Tab.ER PO PRN (20:37)
[2022-12-28 07:22] LABS: ANION GAP 12.2 mmol/L (5-15)
[2022-12-28] MEDS: Multivitamin Tab PO SCH (08:22)
[2022-12-28] MEDS: Aspirin 81 MG Tab.Chew PO SCH (08:22)
[2022-12-28] MEDS: Diltiazem 120 MG Cap.CD PO SCH ×2 (08:22→20:34)
[2022-12-28] MEDS: hydrALAZINE 25 MG Tab PO SCH ×4 (08:22→20:34)
[2022-12-28] MEDS: Sodium Chloride/Potassium Chloride Tab PO SCH ×2 (08:23→20:35)
[2022-12-28] MEDS: atorvaSTATin 40 MG Tab PO SCH (08:24)
[2022-12-28] MEDS: Lisinopril 20 MG Tab PO SCH ×2 (08:24→20:35)
[2022-12-28] MEDS: Hydrochlorothiazide 25 MG Tab PO SCH (08:24)
[2022-12-28] MEDS: Nitrofurantoin Monohydrate/Macrocrystalline 100 MG Cap PO SCH ×2 (08:24→20:36)
[2022-12-28] MEDS: Cholecalciferol (Vitamin D3) 25 MCG Tab PO SCH (08:25)
[2022-12-28] MEDS: Pramipexole 0.125 MG Tab PO SCH (20:34)
[2022-12-29] MEDS: atorvaSTATin 40 MG Tab PO SCH (08:23)
[2022-12-29] MEDS: Hydrochlorothiazide 25 MG Tab PO SCH (08:24)
[2022-12-29] MEDS: Aspirin 81 MG Tab.Chew PO SCH (08:24)
[2022-12-29] MEDS: Nitrofurantoin Monohydrate/Macrocrystalline 100 MG Cap PO SCH ×2 (08:25→20:23)
[2022-12-29] MEDS: Lisinopril 20 MG Tab PO SCH ×2 (08:25→20:23)
[2022-12-29] MEDS: Sodium Chloride/Potassium Chloride Tab PO SCH ×2 (08:25→20:23)
[2022-12-29] MEDS: Diltiazem 120 MG Cap.CD PO SCH ×2 (08:25→20:23)
[2022-12-29] MEDS: Cholecalciferol (Vitamin D3) 25 MCG Tab PO SCH (08:26)
[2022-12-29] MEDS: Multivitamin Tab PO SCH (08:26)
[2022-12-29] MEDS: hydrALAZINE 25 MG Tab PO SCH ×4 (08:26→20:23)
[2022-12-29] MEDS: Pramipexole 0.125 MG Tab PO SCH (20:23)
[2022-12-30] MEDS: Multivitamin Tab PO SCH (08:13)
[2022-12-30] MEDS: Aspirin 81 MG Tab.Chew PO SCH (08:13)
[2022-12-30] MEDS: atorvaSTATin 40 MG Tab PO SCH (08:13)
[2022-12-30] MEDS: Cholecalciferol (Vitamin D3) 25 MCG Tab PO SCH (08:13)
[2022-12-30] MEDS: Sodium Chloride/Potassium Chloride Tab PO SCH ×2 (08:14→20:35)
[2022-12-30] MEDS: Nitrofurantoin Monohydrate/Macrocrystalline 100 MG Cap PO SCH ×2 (08:14→20:36)
[2022-12-30] MEDS: Lisinopril 20 MG Tab PO SCH ×2 (08:15→20:36)
[2022-12-30] MEDS: Hydrochlorothiazide 25 MG Tab PO SCH (08:15)
[2022-12-30] MEDS: Diltiazem 120 MG Cap.CD PO SCH ×2 (08:16→20:35)
[2022-12-30] MEDS: hydrALAZINE 25 MG Tab PO SCH ×4 (08:16→23:06)
[2022-12-30] MEDS ORDERED: Ondansetron 4 MG Tab.DIS PO PRN (10:09)
[2022-12-30] MEDS: Pramipexole 0.125 MG Tab PO SCH (20:36)
[2022-12-31] MEDS: hydrALAZINE 25 MG Tab PO SCH ×4 (09:41→20:21)
[2022-12-31] MEDS: Nitrofurantoin Monohydrate/Macrocrystalline 100 MG Cap PO SCH ×2 (09:42→20:23)
[2022-12-31] MEDS: Aspirin 81 MG Tab.Chew PO SCH (09:42)
[2022-12-31] MEDS: Cholecalciferol (Vitamin D3) 25 MCG Tab PO SCH (09:42)
[2022-12-31] MEDS: Multivitamin Tab PO SCH (09:43)
[2022-12-31] MEDS: Hydrochlorothiazide 25 MG Tab PO SCH (09:43)
[2022-12-31] MEDS: atorvaSTATin 40 MG Tab PO SCH (09:43)
[2022-12-31] MEDS: Sodium Chloride/Potassium Chloride Tab PO SCH ×2 (09:43→20:22)
[2022-12-31] MEDS: Diltiazem 120 MG Cap.CD PO SCH ×2 (09:43→20:22)
[2022-12-31] MEDS: Lisinopril 20 MG Tab PO SCH ×2 (09:44→20:22)
[2022-12-31] MEDS: Pramipexole 0.125 MG Tab PO SCH (20:23)
[2023-01-01] MEDS: Nitrofurantoin Monohydrate/Macrocrystalline 100 MG Cap PO SCH ×2 (10:14→21:45)
[2023-01-01] MEDS: Cholecalciferol (Vitamin D3) 25 MCG Tab PO SCH (10:14)
[2023-01-01] MEDS: Aspirin 81 MG Tab.Chew PO SCH (10:14)
[2023-01-01] MEDS: Lisinopril 20 MG Tab PO SCH ×2 (10:15→21:46)
[2023-01-01] MEDS: atorvaSTATin 40 MG Tab PO SCH (10:15)
[2023-01-01] MEDS: Sodium Chloride/Potassium Chloride Tab PO SCH ×2 (10:16→21:44)
[2023-01-01] MEDS: Diltiazem 120 MG Cap.CD PO SCH ×2 (10:16→21:45)
[2023-01-01] MEDS: Multivitamin Tab PO SCH (10:16)
[2023-01-01] MEDS: Hydrochlorothiazide 25 MG Tab PO SCH (10:17)
[2023-01-01] MEDS: hydrALAZINE 25 MG Tab PO SCH ×4 (10:17→21:45)
[2023-01-01] MEDS: Pramipexole 0.125 MG Tab PO SCH (21:45)
[2023-01-02 07:33] LABS: ANION GAP 12.1 mmol/L (5-15)
[2023-01-02] MEDS: Nitrofurantoin Monohydrate/Macrocrystalline 100 MG Cap PO SCH ×2 (09:37→21:28)
[2023-01-02] MEDS: Sodium Chloride/Potassium Chloride Tab PO SCH ×2 (09:37→21:28)
[2023-01-02] MEDS: Multivitamin Tab PO SCH (09:37)
[2023-01-02] MEDS: hydrALAZINE 25 MG Tab PO SCH ×4 (09:37→21:27)
[2023-01-02] MEDS: Cholecalciferol (Vitamin D3) 25 MCG Tab PO SCH (09:37)
[2023-01-02] MEDS: Hydrochlorothiazide 25 MG Tab PO SCH (09:37)
[2023-01-02] MEDS: Diltiazem 120 MG Cap.CD PO SCH ×2 (09:37→21:26)
[2023-01-02] MEDS: Lisinopril 20 MG Tab PO SCH ×2 (09:37→21:27)
[2023-01-02] MEDS: atorvaSTATin 40 MG Tab PO SCH (09:38)
[2023-01-02] MEDS: Aspirin 81 MG Tab.Chew PO SCH (09:38)
[2023-01-02] MEDS: Pramipexole 0.125 MG Tab PO SCH (21:28)
[2023-01-03] MEDS: Sodium Chloride/Potassium Chloride Tab PO SCH ×2 (08:18→20:02)
[2023-01-03] MEDS: Aspirin 81 MG Tab.Chew PO SCH (08:18)
[2023-01-03] MEDS: Diltiazem 120 MG Cap.CD PO SCH ×2 (08:18→20:02)
[2023-01-03] MEDS: Nitrofurantoin Monohydrate/Macrocrystalline 100 MG Cap PO SCH ×2 (08:19→20:02)
[2023-01-03] MEDS: Lisinopril 20 MG Tab PO SCH ×2 (08:19→20:02)
[2023-01-03] MEDS: atorvaSTATin 40 MG Tab PO SCH (08:19)
[2023-01-03] MEDS: Hydrochlorothiazide 25 MG Tab PO SCH (08:19)
[2023-01-03] MEDS: hydrALAZINE 25 MG Tab PO SCH ×4 (08:19→20:03)
[2023-01-03] MEDS: Multivitamin Tab PO SCH (08:19)
[2023-01-03] MEDS: Cholecalciferol (Vitamin D3) 25 MCG Tab PO SCH (08:19)
[2023-01-03] MEDS: Pramipexole 0.125 MG Tab PO SCH (20:03)
[2023-01-04] MEDS: Nitrofurantoin Monohydrate/Macrocrystalline 100 MG Cap PO SCH ×2 (09:30→20:24)
[2023-01-04] MEDS: Sodium Chloride/Potassium Chloride Tab PO SCH ×2 (09:30→20:23)
[2023-01-04] MEDS: Cholecalciferol (Vitamin D3) 25 MCG Tab PO SCH (09:30)
[2023-01-04] MEDS: atorvaSTATin 40 MG Tab PO SCH (09:30)
[2023-01-04] MEDS: Multivitamin Tab PO SCH (09:30)
[2023-01-04] MEDS: Aspirin 81 MG Tab.Chew PO SCH (09:30)
[2023-01-04] MEDS: Lisinopril 20 MG Tab PO SCH ×2 (09:31→20:23)
[2023-01-04] MEDS: hydrALAZINE 25 MG Tab PO SCH ×4 (09:31→20:27)
[2023-01-04] MEDS: Diltiazem 120 MG Cap.CD PO SCH ×2 (09:31→20:23)
[2023-01-04] MEDS: Hydrochlorothiazide 25 MG Tab PO SCH (09:31)
[2023-01-04] MEDS: Pramipexole 0.125 MG Tab PO SCH (20:24)
[2023-01-05] MEDS: Sodium Chloride/Potassium Chloride Tab PO SCH (08:25)
[2023-01-05] MEDS: Aspirin 81 MG Tab.Chew PO SCH (08:26)
[2023-01-05] MEDS: Multivitamin Tab PO SCH (08:26)
[2023-01-05] MEDS: Cholecalciferol (Vitamin D3) 25 MCG Tab PO SCH (08:27)
[2023-01-05] MEDS: atorvaSTATin 40 MG Tab PO SCH (08:27)
[2023-01-05] MEDS: Lisinopril 20 MG Tab PO SCH (08:28)
[2023-01-05] MEDS: Hydrochlorothiazide 25 MG Tab PO SCH (08:28)
[2023-01-05] MEDS: Nitrofurantoin Monohydrate/Macrocrystalline 100 MG Cap PO SCH (08:28)
[2023-01-05] MEDS: Diltiazem 120 MG Cap.CD PO SCH (08:29)
[2023-01-05] MEDS: hydrALAZINE 25 MG Tab PO SCH (08:51)
== END 2023-01-05 10:55 | disposition home health service (06) | DRG 947 ==
LOC: VM.MS 12:43 → UNDOADMIN 12:43 → VM.MS 13:48
PROVIDERS: ADMIT Nurse Practitioner Family; ATTEND Family Medicine
DX: R53.1 Weakness (principal); J12.82 Pneumonia due to coronavirus disease 2019; U07.1 COVID-19; E87.1 Hypo-osmolality and hyponatremia; J98.11 Atelectasis; M62.82 Rhabdomyolysis; I69.354 Hemiplegia and hemiparesis following cerebral infarction affecting left non-dominant side; N39.0 Urinary tract infection, site not specified; Z23 Encounter for immunization; I10 Essential (primary) hypertension; E78.5 Hyperlipidemia, unspecified; G47.33 Obstructive sleep apnea (adult) (pediatric); I69.391 Dysphagia following cerebral infarction; I51.7 Cardiomegaly; M19.90 Unspecified osteoarthritis, unspecified site; F32.A Depression, unspecified; K59.00 Constipation, unspecified; E04.1 Nontoxic single thyroid nodule; K21.9 Gastro-esophageal reflux disease without esophagitis; Z90.89 Acquired absence of other organs; Z79.82 Long term (current) use of aspirin; Z79.899 Other long term (current) drug therapy; Z90.49 Acquired absence of other specified parts of digestive tract; Z90.710 Acquired absence of both cervix and uterus; Z88.2 Allergy status to sulfonamides
CPT/HCPCS: 36415; 51701; 80048; 80053; 81001; 83735; 85025; 87086; 87088; 87106; 87186; 90662; 95851-GO; 97110-GP; 97112-GP; 97116-GP; 97165-GO; 97530-GP; 97535-GO; A9270-GY; G0008; J8540

== ENCOUNTER 2025-03-17 07:19 | Emergency (ER) | payer MEDICARE, OTHER, MEDICAID ==
[2025-03-17] MEDS ORDERED: traMADol 50 MG Tab PO ONE (07:26)
[2025-03-17 07:42] LABS: BASOPHILS PERCENT AUTO 0.6 % (0.2-1.2); EOSINOPHILS ABSOLUTE AUTO 0.2 x10^3/uL (0.0-0.5); EOSINOPHILS PERCENT AUTO 3.4 % (0.0-4.0); HEMATOCRIT 39.3 % (33.0-47.0); HEMOGLOBIN 12.9 g/dL (12.0-16.0); IMMATURE GRAN ABSOLUTE AUTO 0.01 x10^3/uL (0.00-0.07); LYMPHOCYTES ABSOLUTE AUTO 1.6 x10^3/uL (1.0-4.8); LYMPHOCYTES PERCENT AUTO 25.5 % (25.0-50.0); MEAN CORPUSCULAR HEMOGLOBIN 30.5 pg (26.0-32.0); MEAN CORPUSCULAR HGB CONC 32.8 g/dL (32.0-36.0); MEAN CORPUSCULAR VOLUME 92.9 fL (78.0-93.0); MONOCYTES ABSOLUTE AUTO 0.6 x10^3/uL (0.0-0.8); MONOCYTES PERCENT AUTO 8.8 % (2.0-11.0); NEUTROPHILS ABSOLUTE AUTO 3.9 x10^3/uL (1.8-7.7); NEUTROPHILS PERCENT AUTO 61.5 % (50.0-80.0); PLATELET COUNT,PLT 179 x10^3/uL (130-400); RED BLOOD CELL COUNT 4.23 x10^6/uL (4.00-5.50); WHITE BLOOD CELL COUNT,WBC 6.4 x10^3/uL (4.0-10.0)
[2025-03-17] MEDS: Acetaminophen/HYDROcodone 325-5 MG Tab PO ONE (08:46)
== END 2025-03-17 09:20 | disposition home or self-care (01) ==
LOC: VM.ED 07:19
DX: M25.551 Pain in right hip (principal); M25.552 Pain in left hip; I10 Essential (primary) hypertension; E78.00 Pure hypercholesterolemia, unspecified; K21.9 Gastro-esophageal reflux disease without esophagitis; Z86.16 Personal history of COVID-19; Z90.49 Acquired absence of other specified parts of digestive tract; Z79.899 Other long term (current) drug therapy; Z79.82 Long term (current) use of aspirin; Z88.2 Allergy status to sulfonamides; Z88.8 Allergy status to other drugs, medicaments and biological substances
CPT/HCPCS: 36415; 85025; 99283; 99284; A9270-GY

== ENCOUNTER 2025-03-17 11:20 | Inpatient (IN) | payer MEDICARE, OTHER, MEDICAID ==
[2025-03-17] MEDS ORDERED: Ondansetron 4 MG Tab.DIS PO PRN (14:38)
[2025-03-17] MEDS ORDERED: Acetaminophen 325 MG Tab PO PRN (14:38)
[2025-03-17] MEDS ORDERED: Morphine 2 MG/ML SYRINGE IVPUSH PRN (14:38)
[2025-03-17] MEDS: Acetaminophen/HYDROcodone 325-5 MG Tab PO PRN (17:26)
[2025-03-17] MEDS: hydrALAZINE 25 MG Tab PO SCH (19:45)
[2025-03-17] MEDS: Montelukast 10 MG Tab PO SCH (20:53)
[2025-03-17] MEDS: Lisinopril 20 MG Tab PO SCH (20:54)
[2025-03-17] MEDS: Pramipexole 0.125 MG Tab PO SCH (20:54)
[2025-03-17] MEDS ORDERED: Pramipexole 0.125 MG Tab PO SCH (21:00)
[2025-03-17] MEDS: Diltiazem 120 MG Cap.CD PO SCH (21:01)
[2025-03-18 06:54] LABS: HEMATOCRIT 37.1 % (33.0-47.0); HEMOGLOBIN 12.1 g/dL (12.0-16.0); MEAN CORPUSCULAR HEMOGLOBIN 30.3 pg (26.0-32.0); MEAN CORPUSCULAR HGB CONC 32.6 g/dL (32.0-36.0); MEAN CORPUSCULAR VOLUME 92.8 fL (78.0-93.0); WHITE BLOOD CELL COUNT,WBC 7.9 x10^3/uL (4.0-10.0)
[2025-03-18 07:08] LABS: A/G RATIO 0.91; ANION GAP 11.1 mmol/L (5-15); BILIRUBIN TOTAL 0.3 mg/dL (0.2-1.0); CALCIUM 8.7 mg/dL (8.5-10.1); CREATININE 0.8 mg/dL (0.55-1.02); EST CRCL DRUG DOSING (CG) 45.62 mL/min; POTASSIUM,K 4.1 mmol/L (3.5-5.1); PROTEIN TOTAL,TP 6.3 g/dL (6.4-8.2)
[2025-03-18] MEDS ORDERED: Sennosides/Docusate Sodium 50-8.6 MG Tab PO SCH (09:00)
[2025-03-18] MEDS: Cholecalciferol (Vitamin D3) 25 MCG Tab PO SCH (09:30)
[2025-03-18] MEDS: Aspirin 81 MG Tab.Chew PO SCH (09:31)
[2025-03-18] MEDS: Oxybutynin 5 MG Tab.ER PO SCH (09:31)
[2025-03-18] MEDS: atorvaSTATin 40 MG Tab PO SCH (09:31)
[2025-03-18] MEDS: Citalopram 20 MG Tab PO SCH (09:32)
[2025-03-18] MEDS: Hydrochlorothiazide 25 MG Tab PO SCH (09:35)
[2025-03-18] MEDS: predniSONE 20 MG Tab PO SCH (09:53)
[2025-03-18] MEDS: Sennosides/Docusate Sodium 50-8.6 MG Tab PO SCH (09:53)
[2025-03-18] MEDS: Heparin Sodium 5,000 Units/ML Vial SUBCUT SCH (09:54)
[2025-03-18] MEDS ORDERED: Zolpidem 5 MG Tab PO PRN (11:30)
[2025-03-19 06:30] LABS: HEMATOCRIT 37.1 % (33.0-47.0); HEMOGLOBIN 12.6 g/dL (12.0-16.0); MEAN CORPUSCULAR HEMOGLOBIN 30.7 pg (26.0-32.0); MEAN CORPUSCULAR VOLUME 90.5 fL (78.0-93.0); RED BLOOD CELL COUNT 4.1 x10^6/uL (4.00-5.50); WHITE BLOOD CELL COUNT,WBC 8.7 x10^3/uL (4.0-10.0)
[2025-03-19 06:50] LABS: A/G RATIO 0.83; ALBUMIN 2.9 g/dL (3.4-5.0); BILIRUBIN TOTAL 0.2 mg/dL (0.2-1.0); CALCIUM 8.9 mg/dL (8.5-10.1); CREATININE 0.9 mg/dL (0.55-1.02); EST CRCL DRUG DOSING (CG) 40.55 mL/min; POTASSIUM,K 4.1 mmol/L (3.5-5.1); PROTEIN TOTAL,TP 6.4 g/dL (6.4-8.2)
[2025-03-19 06:51] LABS: ANION GAP 12.1 mmol/L (5-15)
[2025-03-20 07:04] LABS: HEMATOCRIT 36.8 % (33.0-47.0); HEMOGLOBIN 12.2 g/dL (12.0-16.0); MEAN CORPUSCULAR HEMOGLOBIN 30.3 pg (26.0-32.0); MEAN CORPUSCULAR HGB CONC 33.2 g/dL (32.0-36.0); MEAN CORPUSCULAR VOLUME 91.5 fL (78.0-93.0); RED BLOOD CELL COUNT 4.02 x10^6/uL (4.00-5.50); WHITE BLOOD CELL COUNT,WBC 8.9 x10^3/uL (4.0-10.0)
[2025-03-20 07:13] LABS: A/G RATIO 0.81; ALBUMIN 2.9 g/dL (3.4-5.0); ANION GAP 12.1 mmol/L (5-15); BILIRUBIN TOTAL 0.2 mg/dL (0.2-1.0); CALCIUM 9.4 mg/dL (8.5-10.1); CREATININE 0.9 mg/dL (0.55-1.02); EST CRCL DRUG DOSING (CG) 40.55 mL/min; POTASSIUM,K 4.1 mmol/L (3.5-5.1); PROTEIN TOTAL,TP 6.5 g/dL (6.4-8.2)
[2025-03-20 12:37] VITALS: BP 173/78
[2025-03-20 13:00] VITALS: PULSE 73
== END 2025-03-20 13:24 | disposition swing bed (61) | DRG 556 ==
LOC: VM.MS 11:25
PROVIDERS: ADMIT Family Medicine; ATTEND Nurse Practitioner Family
DX: M25.551 Pain in right hip (principal); I69.954 Hemiplegia and hemiparesis following unspecified cerebrovascular disease affecting left non-dominant side; M25.552 Pain in left hip; M54.50 Low back pain, unspecified; Z66 Do not resuscitate; J31.0 Chronic rhinitis; E78.00 Pure hypercholesterolemia, unspecified; I10 Essential (primary) hypertension; F39 Unspecified mood [affective] disorder; E89.0 Postprocedural hypothyroidism; J45.909 Unspecified asthma, uncomplicated; K21.9 Gastro-esophageal reflux disease without esophagitis; M19.90 Unspecified osteoarthritis, unspecified site; F32.A Depression, unspecified; Z90.49 Acquired absence of other specified parts of digestive tract; Z90.710 Acquired absence of both cervix and uterus; Z96.649 Presence of unspecified artificial hip joint; Z96.659 Presence of unspecified artificial knee joint; Z79.82 Long term (current) use of aspirin; Z79.899 Other long term (current) drug therapy; Z88.8 Allergy status to other drugs, medicaments and biological substances; Z88.2 Allergy status to sulfonamides
CPT/HCPCS: 36415; 80053; 85027; 97161-GP; 97165-GO; 97530-GP; 97535-GO; A9270-GY; J1644; J7512

== ENCOUNTER 2025-03-20 09:04 | Inpatient (IN) | payer MEDICARE, OTHER, MEDICAID ==
[2025-03-20] MEDS ORDERED: Ondansetron 4 MG Tab.DIS PO PRN (13:38)
[2025-03-20] MEDS: Tiotropium BR/Olodaterol HCL 4 GM Inhalation Spray 2.5mcg/1 dose; 10 doses INH SCH (14:36)
[2025-03-20] MEDS: Heparin Sodium 5,000 Units/ML Vial SUBCUT SCH (15:45)
[2025-03-20] MEDS: Diltiazem 240 MG Cap.ER PO SCH (20:56)
[2025-03-21] MEDS: Cholecalciferol (Vitamin D3) 25 MCG Tab PO SCH (08:43)
[2025-03-21] MEDS: Oxybutynin 5 MG Tab.ER PO SCH (08:45)
[2025-03-21] MEDS: Sennosides/Docusate Sodium 50-8.6 MG Tab PO SCH (08:45)
[2025-03-24] MEDS: Acetaminophen/HYDROcodone 325-5 MG Tab PO PRN (08:40)
[2025-03-27] MEDS ORDERED: guaiFENesin 100 MG/5 ML Soln 10 ML UD Cup PO PRN (06:58)
[2025-04-10 07:38] LABS: GLUCOSE,URINE NEGATIVE (NEGATIVE); OCCULT BLOOD,URINE NEGATIVE (NEGATIVE)
[2025-04-10 07:51] LABS: APPEARANCE,URINE SLIGHTLY CLOUDY (CLEAR)
[2025-04-10 07:53] LABS: SQUAMOUS EPITHELIAL CELLS,UR FEW /HPF (NOT SEEN)
[2025-04-11] MEDS: Magnesium Hydroxide 400 MG/5 ML Susp 30 ML Cup PO PRN (07:57)
[2025-04-16] MEDS ORDERED: Iopamidol 612 MG/ML 15 ML SDV ONE (13:59)
[2025-04-16] MEDS ORDERED: methylPREDNISolone Acetate 40 MG/ML SDV ONE (13:59)
[2025-05-07 15:33] VITALS: BP 125/56; PULSE 55
== END 2025-05-07 15:25 | disposition home health service (06) | DRG 948 ==
LOC: VM.MS 13:27
PROVIDERS: ADMIT Nurse Practitioner Family; ATTEND Nurse Practitioner Family
DX: R53.1 Weakness (principal); I69.954 Hemiplegia and hemiparesis following unspecified cerebrovascular disease affecting left non-dominant side; F32.A Depression, unspecified; I10 Essential (primary) hypertension; E78.00 Pure hypercholesterolemia, unspecified; M19.90 Unspecified osteoarthritis, unspecified site; K21.9 Gastro-esophageal reflux disease without esophagitis; M54.16 Radiculopathy, lumbar region; Z66 Do not resuscitate; Z88.2 Allergy status to sulfonamides; Z88.8 Allergy status to other drugs, medicaments and biological substances; Z79.82 Long term (current) use of aspirin; Z79.899 Other long term (current) drug therapy; Z79.52 Long term (current) use of systemic steroids; Z86.73 Personal history of transient ischemic attack (TIA), and cerebral infarction without residual deficits; Z90.49 Acquired absence of other specified parts of digestive tract; Z90.710 Acquired absence of both cervix and uterus; Z96.649 Presence of unspecified artificial hip joint; Z96.659 Presence of unspecified artificial knee joint
CPT/HCPCS: 62323; 72148; 81001; 87077; 87086; 87088; 92610-GN; 94640; 97110-GP; 97116-GP; 97164-GP; 97530-GO; 97530-GP; 97535-GO; 99205; 99213; 99307-GT; A9270-GY; J1010; J1644; J2003; J7512; Q9967

== ENCOUNTER 2025-05-08 16:44 | Inpatient (IN) | payer MEDICARE, OTHER, MEDICAID ==
[2025-05-08 17:20] LABS: BASOPHILS ABSOLUTE AUTO 0.0 x10^3/uL (0.0-0.2); BASOPHILS PERCENT AUTO 0.3 % (0.2-1.2); EOSINOPHILS ABSOLUTE AUTO 0.1 x10^3/uL (0.0-0.5); EOSINOPHILS PERCENT AUTO 1.3 % (0.0-4.0); IMMATURE GRAN ABSOLUTE AUTO 0.01 x10^3/uL (0.00-0.07); IMMATURE GRAN PERCENT AUTO 0.10 % (0.00-0.43); LYMPHOCYTES ABSOLUTE AUTO 1.1 x10^3/uL (1.0-4.8); LYMPHOCYTES PERCENT AUTO 14.0 % (25.0-50.0); MONOCYTES ABSOLUTE AUTO 0.6 x10^3/uL (0.0-0.8); MONOCYTES PERCENT AUTO 8.0 % (2.0-11.0); NEUTROPHILS ABSOLUTE AUTO 5.8 x10^3/uL (1.8-7.7); NEUTROPHILS PERCENT AUTO 76.3 % (50.0-80.0); PLATELET COUNT,PLT 213 x10^3/uL (130-400); RED BLOOD CELL COUNT 4.20 x10^6/uL (4.00-5.50); WHITE BLOOD CELL COUNT,WBC 7.6 x10^3/uL (4.0-10.0)
[2025-05-08 17:37] LABS: A/G RATIO 0.92; ALANINE AMINOTRANSFERASE,ALT 18 U/L (14-59); ASPARTATE AMNIOTRANSFERASE,AST 12 U/L (15-37); BILIRUBIN TOTAL 0.3 mg/dL (0.2-1.0); BLOOD UREA NITROGEN,BUN 22 mg/dL (7-18); CARBON DIOXIDE,CO2 26 mmol/L (21-32); CHLORIDE,CL 92 mmol/L (98-107); CREATININE 1.0 mg/dL (0.55-1.02); GLUCOSE RANDOM 190 mg/dL (70-99); POTASSIUM,K 4.1 mmol/L (3.5-5.1); PROTEIN TOTAL,TP 6.9 g/dL (6.4-8.2)
[2025-05-08 17:41] LABS: ESTIMATED GFR 57 mL/min (>=60)
[2025-05-08 17:42] LABS: SODIUM,NA 128 mmol/L (136-145)
[2025-05-08 17:46] LABS: APPEARANCE,URINE SLIGHTLY CLOUDY (CLEAR); GLUCOSE,URINE NEGATIVE (NEGATIVE); OCCULT BLOOD,URINE NEGATIVE (NEGATIVE)
[2025-05-08 17:52] LABS: SQUAMOUS EPITHELIAL CELLS,UR FEW /HPF (NOT SEEN)
[2025-05-08] MEDS ORDERED: Acetaminophen/HYDROcodone 325-5 MG Tab PO PRN (21:20)
[2025-05-09 07:46] LABS: PLATELET COUNT,PLT 195.0 x10^3/uL (130-400); RED BLOOD CELL COUNT 4.1 x10^6/uL (4.00-5.50); WHITE BLOOD CELL COUNT,WBC 7.8 x10^3/uL (4.0-10.0)
[2025-05-09 07:51] LABS: BLOOD UREA NITROGEN,BUN 15.0 mg/dL (7-18); CARBON DIOXIDE,CO2 26.0 mmol/L (21-32); CHLORIDE,CL 97.0 mmol/L (98-107); CREATININE 0.8 mg/dL (0.55-1.02); EST CRCL DRUG DOSING (CG) 45.62 mL/min; ESTIMATED GFR 74.0 mL/min (>=60); GLUCOSE RANDOM 165.0 mg/dL (70-99); POTASSIUM,K 3.8 mmol/L (3.5-5.1); SODIUM,NA 131.0 mmol/L (136-145)
[2025-05-09] MEDS ORDERED: LYCOPEN PO SCH (09:00)
[2025-05-09] MEDS ORDERED: MULTIVIT MIN PO SCH (09:00)
[2025-05-09] MEDS ORDERED: [UNRECOGNIZED DRUG - OTHER] PO SCH (09:00)
[2025-05-09] MEDS ORDERED: LUTEIN PO SCH (09:00)
[2025-05-09] MEDS: Cholecalciferol (Vitamin D3) 25 MCG Tab PO SCH (09:04)
[2025-05-09] MEDS: Sennosides/Docusate Sodium 50-8.6 MG Tab PO SCH (09:05)
[2025-05-09] MEDS: Diltiazem 240 MG Cap.ER PO SCH (09:05)
[2025-05-09] MEDS: Oxybutynin 5 MG Tab.ER PO SCH (09:05)
[2025-05-09] MEDS: Nitrofurantoin Monohydrate/Macrocrystalline 100 MG Cap PO SCH (13:21)
[2025-05-09] MEDS ORDERED: ZALEPLON 5 MG PO PRN (15:15)
[2025-05-10 09:10] LABS: BASOPHILS ABSOLUTE AUTO 0.1 x10^3/uL (0.0-0.2); BASOPHILS PERCENT AUTO 0.6 % (0.2-1.2); EOSINOPHILS ABSOLUTE AUTO 0.3 x10^3/uL (0.0-0.5); EOSINOPHILS PERCENT AUTO 3.2 % (0.0-4.0); IMMATURE GRAN ABSOLUTE AUTO 0.02 x10^3/uL (0.00-0.07); IMMATURE GRAN PERCENT AUTO 0.20 % (0.00-0.43); LYMPHOCYTES ABSOLUTE AUTO 1.0 x10^3/uL (1.0-4.8); LYMPHOCYTES PERCENT AUTO 11.1 % (25.0-50.0); MONOCYTES ABSOLUTE AUTO 0.7 x10^3/uL (0.0-0.8); MONOCYTES PERCENT AUTO 8.1 % (2.0-11.0); NEUTROPHILS ABSOLUTE AUTO 6.6 x10^3/uL (1.8-7.7); NEUTROPHILS PERCENT AUTO 76.8 % (50.0-80.0); PLATELET COUNT,PLT 214 x10^3/uL (130-400); RED BLOOD CELL COUNT 4.44 x10^6/uL (4.00-5.50); WHITE BLOOD CELL COUNT,WBC 8.6 x10^3/uL (4.0-10.0)
[2025-05-10 09:29] LABS: BLOOD UREA NITROGEN,BUN 9.0 mg/dL (7-18); CARBON DIOXIDE,CO2 26.0 mmol/L (21-32); CHLORIDE,CL 97.0 mmol/L (98-107); CREATININE 0.7 mg/dL (0.55-1.02); EST CRCL DRUG DOSING (CG) 52.14 mL/min; GLUCOSE RANDOM 137.0 mg/dL (70-99); POTASSIUM,K 4.3 mmol/L (3.5-5.1); SODIUM,NA 132.0 mmol/L (136-145)
[2025-05-10 09:39] LABS: ESTIMATED GFR 87.0 mL/min (>=60)
[2025-05-12] MEDS ORDERED: Tiotropium Bromide 4 GM Inhalation Spray (2.5mcg/1 dose; 10 doses) INH SCH (09:00)
== END 2025-05-11 10:35 | DRG 641 ==
LOC: VM.ED 16:44 → VM.MS 18:33 → OBSVTOIN 05-09 12:09
PROVIDERS: ADMIT Internal Medicine; ATTEND Nurse Practitioner Family
DX: E87.1 Hypo-osmolality and hyponatremia (principal); I69.954 Hemiplegia and hemiparesis following unspecified cerebrovascular disease affecting left non-dominant side; N39.0 Urinary tract infection, site not specified; R53.1 Weakness; Z66 Do not resuscitate; I10 Essential (primary) hypertension; E78.00 Pure hypercholesterolemia, unspecified; K21.9 Gastro-esophageal reflux disease without esophagitis; G47.33 Obstructive sleep apnea (adult) (pediatric); M19.90 Unspecified osteoarthritis, unspecified site; F32.A Depression, unspecified; Z90.49 Acquired absence of other specified parts of digestive tract; Z98.890 Other specified postprocedural states; Z88.8 Allergy status to other drugs, medicaments and biological substances; Z96.649 Presence of unspecified artificial hip joint; Z86.73 Personal history of transient ischemic attack (TIA), and cerebral infarction without residual deficits; Z90.710 Acquired absence of both cervix and uterus; Z79.82 Long term (current) use of aspirin; Z79.899 Other long term (current) drug therapy; Z96.659 Presence of unspecified artificial knee joint; Z88.2 Allergy status to sulfonamides; Z88.5 Allergy status to narcotic agent
CPT/HCPCS: 36415; 80048; 80053; 81001; 85025; 85027; 87086; 87088; 87186; 94640; 96372; 99223; 99223-GT; 99284; 99285; A9270-GY; G0378; J1650; J7030

== ENCOUNTER 2025-08-21 16:05 | Inpatient (IN) | payer MEDICARE, OTHER, MEDICAID ==
[2025-08-21] MEDS ORDERED: Sodium Chloride 0.9% 10 ML Syringe FLUSH PRN (16:16)
[2025-08-21 16:27] LABS: BASOPHILS ABSOLUTE AUTO 0.0 x10^3/uL (0.0-0.2); BASOPHILS PERCENT AUTO 0.4 % (0.2-1.2); EOSINOPHILS ABSOLUTE AUTO 0.2 x10^3/uL (0.0-0.5); EOSINOPHILS PERCENT AUTO 1.9 % (0.0-4.0); IMMATURE GRAN ABSOLUTE AUTO 0.02 x10^3/uL (0.00-0.07); IMMATURE GRAN PERCENT AUTO 0.20 % (0.00-0.43); LYMPHOCYTES ABSOLUTE AUTO 1.9 x10^3/uL (1.0-4.8); LYMPHOCYTES PERCENT AUTO 20.3 % (25.0-50.0); MONOCYTES ABSOLUTE AUTO 0.8 x10^3/uL (0.0-0.8); MONOCYTES PERCENT AUTO 8.6 % (2.0-11.0); NEUTROPHILS ABSOLUTE AUTO 6.3 x10^3/uL (1.8-7.7); NEUTROPHILS PERCENT AUTO 68.6 % (50.0-80.0); PLATELET COUNT,PLT 201 x10^3/uL (130-400); RED BLOOD CELL COUNT 4.25 x10^6/uL (4.00-5.50); WHITE BLOOD CELL COUNT,WBC 9.2 x10^3/uL (4.0-10.0)
[2025-08-21] MEDS: Nitroglycerin 0.4 MG Tab.SL SL ONE (16:30)
[2025-08-21 16:47] LABS: INR 1.0 (0.9-1.1); PTT,PARTIAL THROMBOPLSTIN TIME 24.5 SEC (24.3-33.4)
[2025-08-21 16:53] LABS: A/G RATIO 0.87; ALANINE AMINOTRANSFERASE,ALT 37 U/L (14-59); ASPARTATE AMNIOTRANSFERASE,AST 17 U/L (15-37); BILIRUBIN TOTAL 0.2 mg/dL (0.2-1.0); BLOOD UREA NITROGEN,BUN 35 mg/dL (7-18); CARBON DIOXIDE,CO2 30 mmol/L (21-32); CHLORIDE,CL 100 mmol/L (98-107); CREATININE 0.9 mg/dL (0.55-1.02); GLUCOSE RANDOM 117 mg/dL (70-99); POTASSIUM,K 4.6 mmol/L (3.5-5.1); PROTEIN TOTAL,TP 7.3 g/dL (6.4-8.2); SODIUM,NA 137 mmol/L (136-145); TSH ULTRASENSITIVE 1.044 uIU/mL (0.358-3.74)
[2025-08-21 16:55] LABS: ESTIMATED GFR 64 mL/min (>=60)
[2025-08-21] MEDS: Lactated Ringers 1,000 ML IV ONE (17:17)
[2025-08-21] MEDS ORDERED: Ondansetron 4 MG Tab.DIS PO PRN (17:37)
[2025-08-21] MEDS: Diltiazem 180 MG Cap.CD PO SCH (22:12)
[2025-08-22] MEDS: Albuterol 0.083% 2.5 MG/3 ML Neb Soln NEB SCH (06:34)
[2025-08-22] MEDS: Budesonide 0.5 MG/2 ML Neb Susp INH SCH (06:37)
[2025-08-22 07:40] LABS: PLATELET COUNT,PLT 184.0 x10^3/uL (130-400); RED BLOOD CELL COUNT 3.8 x10^6/uL (4.00-5.50); WHITE BLOOD CELL COUNT,WBC 6.6 x10^3/uL (4.0-10.0)
[2025-08-22 07:45] LABS: BLOOD UREA NITROGEN,BUN 27.0 mg/dL (7-18); CARBON DIOXIDE,CO2 30.0 mmol/L (21-32); CHLORIDE,CL 102.0 mmol/L (98-107); CREATININE 0.8 mg/dL (0.55-1.02); EST CRCL DRUG DOSING (CG) 44.85 mL/min; GLUCOSE RANDOM 124.0 mg/dL (70-99); POTASSIUM,K 4.3 mmol/L (3.5-5.1); SODIUM,NA 137.0 mmol/L (136-145)
[2025-08-22 07:47] LABS: ESTIMATED GFR 74.0 mL/min (>=60)
[2025-08-22] MEDS ORDERED: Non-Formulary Medication 1 Each (Citalopram Hydrobromide [Celexa] 40 MG Tablet) PO SCH (09:00)
[2025-08-22] MEDS: Cholecalciferol (Vitamin D3) 25 MCG Tab PO SCH (10:04)
[2025-08-22] MEDS: Sennosides/Docusate Sodium 50-8.6 MG Tab PO SCH (10:04)
[2025-08-22] MEDS: Oxybutynin 5 MG Tab.ER PO SCH (10:05)
[2025-08-22] MEDS: Tiotropium Bromide 4 GM Inhalation Spray (2.5mcg/1 dose; 10 doses) INH SCH (10:06)
[2025-08-23 07:34] LABS: PLATELET COUNT,PLT 182.0 x10^3/uL (130-400); RED BLOOD CELL COUNT 3.81 x10^6/uL (4.00-5.50); WHITE BLOOD CELL COUNT,WBC 8.2 x10^3/uL (4.0-10.0)
[2025-08-23 07:43] LABS: BLOOD UREA NITROGEN,BUN 22.0 mg/dL (7-18); CARBON DIOXIDE,CO2 30.0 mmol/L (21-32); CHLORIDE,CL 103.0 mmol/L (98-107); CREATININE 0.7 mg/dL (0.55-1.02); EST CRCL DRUG DOSING (CG) 51.26 mL/min; GLUCOSE RANDOM 124.0 mg/dL (70-99); POTASSIUM,K 4.3 mmol/L (3.5-5.1); SODIUM,NA 140.0 mmol/L (136-145)
[2025-08-23 07:45] LABS: ESTIMATED GFR 86.0 mL/min (>=60)
[2025-08-23] MEDS: Diltiazem 120 MG Cap.CD PO SCH (21:33)
[2025-08-24 06:57] LABS: PLATELET COUNT,PLT 190.0 x10^3/uL (130-400); RED BLOOD CELL COUNT 3.98 x10^6/uL (4.00-5.50); WHITE BLOOD CELL COUNT,WBC 7.6 x10^3/uL (4.0-10.0)
[2025-08-24 07:14] LABS: BLOOD UREA NITROGEN,BUN 25.0 mg/dL (7-18); CARBON DIOXIDE,CO2 29.0 mmol/L (21-32); CHLORIDE,CL 103.0 mmol/L (98-107); CREATININE 0.7 mg/dL (0.55-1.02); EST CRCL DRUG DOSING (CG) 51.26 mL/min; GLUCOSE RANDOM 115.0 mg/dL (70-99); POTASSIUM,K 4.6 mmol/L (3.5-5.1); SODIUM,NA 139.0 mmol/L (136-145)
[2025-08-24 07:15] LABS: ESTIMATED GFR 86.0 mL/min (>=60)
== END 2025-08-24 14:00 | disposition home or self-care (01) | DRG 309 ==
LOC: VM.ED 16:05 → VM.MS 17:12
PROVIDERS: ADMIT Family Medicine; ATTEND Nurse Practitioner Family
DX: R00.1 Bradycardia, unspecified (principal); I69.354 Hemiplegia and hemiparesis following cerebral infarction affecting left non-dominant side; I48.91 Unspecified atrial fibrillation; E78.00 Pure hypercholesterolemia, unspecified; I10 Essential (primary) hypertension; E78.5 Hyperlipidemia, unspecified; Z66 Do not resuscitate; R73.02 Impaired glucose tolerance (oral); R13.10 Dysphagia, unspecified; K21.9 Gastro-esophageal reflux disease without esophagitis; N39.41 Urge incontinence; M19.90 Unspecified osteoarthritis, unspecified site; G47.30 Sleep apnea, unspecified; E89.0 Postprocedural hypothyroidism; F41.8 Other specified anxiety disorders; Z96.649 Presence of unspecified artificial hip joint; Z96.659 Presence of unspecified artificial knee joint; G25.81 Restless legs syndrome; J45.909 Unspecified asthma, uncomplicated; Z88.2 Allergy status to sulfonamides; Z88.8 Allergy status to other drugs, medicaments and biological substances; Z79.82 Long term (current) use of aspirin; Z79.1 Long term (current) use of non-steroidal anti-inflammatories (NSAID); Z79.2 Long term (current) use of antibiotics; Z79.899 Other long term (current) drug therapy; Z86.73 Personal history of transient ischemic attack (TIA), and cerebral infarction without residual deficits; Z98.890 Other specified postprocedural states; Z90.49 Acquired absence of other specified parts of digestive tract; Z90.710 Acquired absence of both cervix and uterus
CPT/HCPCS: 71045; 80053; 83735; 84443; 84484; 85025; 85610; 85730; 99285; 93005; A9270; 36415; 80048; 85027; 93010; 94640; 94760; 97161-GP; 97165-GO; 97535-GO; 99284; J1650; J7120